=== PATIENT | male | born 1960 | race American Indian/Alaskan Native ===

== ENCOUNTER 2019-11-01 18:27 | Inpatient (IN) | payer MEDICAID ==
[2019-11-01] MEDS ORDERED: LORazepam 2 MG/ML VIAL IV ONE ×2 (18:57→19:10)
[2019-11-01] MEDS ORDERED: LORazepam 2 MG/ML VIAL ONE (18:58)
[2019-11-01] MEDS ORDERED: SODIUM CHLORIDE 0.9% 500 ML 500 ML IV ONE (19:04)
[2019-11-01] MEDS ORDERED: levETIRAcetam 1000 MG/NS 0.75% 1,000 MG/100 ML BAG IV ONE (19:05)
--- NOTE | 2019-11-01 19:40 | Emergency Department Report ---
HPI - General Chief Complaint: Seizure Time Seen by Provider: 11/01/19 19:01 - HPI HPI: 59-year-old -[place] male presents to the emergency department via EMS from [facility] with multiple seizures both prior to arrival and upon presentation. The patient's is currently at bedside and says that he does not have any seizure history. He has a past medical history of CVA, NE with previous CABG, nontraumatic subarachnoid, chronic kidney disease. The patient also recently had a right lower extremity amputation secondary to some type of infection and sepsis. He was not given anything in route by EMS. Patient does have some baseline confusion but is normally alert, conversive. ED Past Medical Hx - Past Medical History Previous Medical History?: Yes Hx CVA: Yes Hx Heart Attack/AMI: Yes Hx Renal Disease: Yes (Stage 3) Hx Seizures: Yes Additional medical history: Coronary artery disease, subarachnoid hemorrhage, Pyelonephritis - Surgical History Past Surgical History?: Yes Additional Surgical History: CABG, PEG tube 05/13/19, R leg amputation 2018 ED Review of Systems ROS: Stated complaint: SEIZURE Other details as noted in HPI Comment: Unobtainable due to pts medical conditions Physical Exam - Physical Exam Vital Signs: Vital Signs 11/01/19 19:03 Temperature 100.1 F H Pulse Rate 133 H Respiratory 26 H Rate Blood Pressure 130/74 [Left] O2 Sat by Pulse 28 L Oximetry Physical Exam: GENERAL: Patient is ill-appearing and unresponsive. HEENT: Normocephalic. Atraumatic. Patient has moist mucous membranes. EYES: Pupils equal and reactive to light bilaterally. NECK: Supple. Trachea is midline. CHEST/LUNGS: Clear to auscultation. There is no respiratory distress noted. HEART/CARDIOVASCULAR: Regular. There is moderate tachycardia. There is no murmur. ABDOMEN: Abdomen is soft. Patient has normal bowel sounds. There is no abdominal distention. SKIN:Skin is warm and dry. There is a stage I to 2 sacral ulcer or skin breakdown. NEURO: The patient is postictal and unresponsive. MUSCULOSKELETAL: There is no obvious deformity. Right below-knee amputation. ED Course Vital Signs 11/01/19 19:03 Temperature 100.1 F H Pulse Rate 133 H Respiratory 26 H Rate Blood Pressure 130/74 [Left] O2 Sat by Pulse 28 L Oximetry ED Medical Decision Making - Lab Data Result diagrams: 11/01/19 19:14 11/01/19 19:14 - EKG Data -: EKG Interpreted by Me EKG shows normal: sinus rhythm (PVCs), axis (left axis deviation), intervals, QRS complexes ( Q waves to the septal and inferior leads), ST-T waves Rate: tachycardia (150 bpm) - EKG Data When compared to previous EKG there are: previous EKG unavailable Interpretation: other (sinus tachycardia at 150 bpm, PVCs, Q waves to the septal and inferior leads) - Radiology Data Radiology results: report reviewed, image reviewed interpreted by me: Chest x-ray does not show any pleural effusions, pneumonia, pneumothorax, focal consolidation, or any other acute process. CT HEAD WITHOUT CONTRAST INDICATION / CLINICAL INFORMATION: Altered mental status. TECHNIQUE: All CT scans at this location are performed using CT dose reduction for ALARA by means of automated exposure control. COMPARISON: None available. FINDINGS: HEMORRHAGE: None. EXTRA-AXIAL SPACES: Normal in size and morphology for the patient's age. VENTRICULAR SYSTEM: Normal in size and morphology for the patient's age. CEREBRAL PARENCHYMA: Old right parieto-occipital CVA with encephalomalacia. Extensive periventricular and deep white matter hypoattenuation characteristic for microangiopathy. No large acute territorial infarction. MIDLINE SHIFT OR HERNIATION: None. CEREBELLUM / BRAINSTEM: No significant abnormality. ORBITS: Normal as visualized. SOFT TISSUES of HEAD: No significant abnormality. CALVARIUM: No significant abnormality. PARANASAL SINUSES / MASTOID AIR CELLS: Opacification of both mastoid air cells characteristic for mastoiditis. Paranasal sinuses are well-aerated. ADDITIONAL FINDINGS: None. IMPRESSION: 1. Old right DIAMOND GRINDER CVA. 2. Extensive microangiopathy and moderate atrophy 3. Bilateral mastoiditis - Medical Decision Making This patient presents to the emergency department with some seizures prior to arrival and then a few seizures upon arrival. The patient's says that he does not have any seizure history. He was given 2 different doses of IM Ativan and once an IV was established he was loaded with a gram of Keppra. After getting these medications the patient did not have any further seizure-like activity. He came in with moderate tachycardia but his heart rate went up to about 150-160 bpm after the seizures. EKG shows sinus tachycardia without ST elevation NE. Patient's labs shows a leukocytosis of about 15,000, some anemia with a hemoglobin of 8.9, severe lactic acidosis, low bicarbonate, and a urinary tract infection. The patient was given 2 L of IV fluid resuscitation and his lactic acid level has trended down and is within the normal range at this point. He was given some Rocephin for the urinary tract infection. A CT scan of the head without contrast did not show any bleed, shift, mass, ischemia, or any other acute process. Chest x-ray did not show any acute process. Patient will be admitted to the hospital for further evaluation and treatment and was accepted for admission by the hospitalist, Dr. Kee. - Differential Diagnosis sepsis, TIA, hypoglycemia, dysrhythmia Critical Care Time: Yes Critical care time in (mins) excluding proc time.: 35 Critical care attestation.: If time is entered above; I have spent that time in minutes in the direct care of this critically ill patient, excluding procedure time. Critical care time was spent on this patient and doing his initial evaluation, multiple re- evaluations, ordering and interpretation of labs and imaging, IV fluid resuscitation, antiepileptic medication, multiple discussions with the patient's . Critical Care Time: 35 minutes ED Disposition Clinical Impression: New onset seizure, Tachycardia UTI (urinary tract infection) Qualifiers: Urinary tract infection type: acute cystitis Hematuria presence: without hematuria Qualified Code(s): N30.00 - Acute cystitis without hematuria Hypertension Qualifiers: Hypertension type: essential hypertension Qualified Code(s): I10 - Essential (primary) hypertension Altered mental status Qualifiers: Altered mental status type: unspecified Qualified Code(s): R41.82 - Altered mental status, unspecified Disposition: OP ADMIT IP TO THIS HOSP Is pt being admited?: Yes Condition: Serious Instructions: Hypertension (ED) Referrals: PAOLA SMITH MD [Primary Care Provider] - 3-5 Days Time of Disposition: 00:12
[2019-11-01 19:46] LABS: INR 1.35 (0.87-1.13); Mean Corpuscular HGB Conc 30 % (32-34); Mean Corpuscular Volume 99 fl (84-94); Platelet Count 515 K/mm3 (140-440); Red Blood Count 3.05 M/mm3 (3.65-5.03); Red Cell Distribution Width 18.5 % (13.2-15.2)
[2019-11-01 19:47] LABS: Partial Thromboplastin Time 38.4 Sec. (24.2-36.6)
[2019-11-01 19:48] LABS: Hematocrit 30.1 % (35.5-45.6); Hemoglobin 8.9 gm/dl (11.8-15.2)
[2019-11-01 19:58] LABS: Calcium 9.5 mg/dL (8.4-10.2)
[2019-11-01 19:59] LABS: Albumin 3.2 g/dL (3.9-5)
--- NOTE | 2019-11-01 20:21 | XRay Report ---
CHEST 1 VIEW 11/01/2019 7:05 PM INDICATION / CLINICAL INFORMATION: Altered mental status. COMPARISON: None available. FINDINGS: SUPPORT DEVICES: None. HEART / MEDIASTINUM: Sternotomy, CABG, left atrial appendage clip and mild cardiomegaly. LUNGS / PLEURA: Mild linear bibasilar scarring/atelectasis. No significant pulmonary or pleural abnor mality. No pneumothorax. ADDITIONAL FINDINGS: No significant additional findings. IMPRESSION: 1. No acute findings. Signer Name: Sarbjit Sofia MD Signed: 11/01/2019 8:16 PM Workstation Name: [id number]
[2019-11-01 20:24] LABS: Total Cells Counted 100
[2019-11-01 20:25] LABS: Anisocytosis 1+; Basophils % (Manual) 0 % (0.0-1.8); Platelet Estimate Appears Increased; Poikilocytosis 1+
[2019-11-01] MEDS ORDERED: SODIUM CHLORIDE 0.9% 1000 ML 1,000 ML IV ONE (21:02)
[2019-11-01 21:30] LABS: Bilirubin,Urine NEG (Negative); Blood,Urine NEG (Negative); Color,Urine Yellow (Yellow); Hyaline Casts,Urine 4 /LPF; Mucus,Urine FEW /HPF; Urobilinogen,Urine < 2.0 mg/dL (<2.0)
[2019-11-01] MEDS ORDERED: cefTRIAXone/NS 1 GM/50 ML 1 GM/50 ML BAG IV ONE (21:33)
--- NOTE | 2019-11-01 21:49 | Cat Scan Report ---
CT HEAD WITHOUT CONTRAST INDICATION / CLINICAL INFORMATION: Altered mental status. TECHNIQUE: All CT scans at this location are performed using CT dose reduction for ALARA by means of automated e xposure control. COMPARISON: None available. FINDINGS: HEMORRHAGE: None. EXTRA-AXIAL SPACES: Normal in size and morphology for the patient's age. VENTRICULAR SYSTEM: Normal in size and morphology for the patient's age. CEREBRAL PARENCHYMA: Old right parieto-occipital CVA with encephalomalacia. Extensive periventricular and deep white matter hypoattenuation characteristic for microangiopathy. No large acute territorial infarction. MIDLINE SHIFT OR HERNIATION: None. CEREBELLUM / BRAINSTEM: No significant abnormality. ORBITS: Normal as visualized. SOFT TISSUES of HEAD: No significant abnormality. CALVARIUM: No significant abnormality. PARANASAL SINUSES / MASTOID AIR CELLS: Opacification of both mastoid air cells characteristic for mas toiditis. Paranasal sinuses are well-aerated. ADDITIONAL FINDINGS: None. IMPRESSION: 1. Old right [employer] CVA. 2. Extensive microangiopathy and moderate atrophy 3. Bilateral mastoiditis Signer Name: Sarbjit Sofia MD Signed: 11/01/2019 9:45 PM Workstation Name: [id number]
[2019-11-01] MEDS ORDERED: ACETAMINOPHEN 650 MG RECT SUPP PR ONE (23:06)
[2019-11-02] MEDS ORDERED: LACTULOSE 20 GM/30 ML ORAL LIQD PO ONE (00:10)
--- NOTE | 2019-11-02 01:06 | History and Physical Report ---
History of Present Illness Date of examination: 11/01/19 Date of admission: 11/01/19 23:48 Chief complaint: Seizure per family History of present illness: Patient is a 59-year-old male with a past medical history of CVA, CAD, CABG, CKD, who presents to ER with complaints of seizure-like activity. Patient is a resident of [facility] where he has been since his stroke 2018. Patient is known to [facility]. Patient's states he does not have his tory of seizure, but received call from facility stating that her was on the way to ER status post seizure this evening. She reports he recently had his right leg amputated 10/30/19, for loss of blood flow. Patient is currently sleeping but awakes to stimuli, in no acute distress on exam. Past History Past Surgical History: Other (Right leg amputation 10/30/19, ) Social history: no significant social history Family history: CAD, diabetes Medications and Allergies Allergies Allergy/AdvReac Type Severity Reaction Status Date / Time No Known Allergies Allergy Verified 11/01/19 18:46 Review of Systems ROS unobtainable: due to mental status Exam - Constitutional Vitals: Temp Pulse Resp BP Pulse Ox 100.1 F H 129 H 23 151/82 96 11/01/19 19:03 11/01/19 23:31 11/01/19 23:31 11/01/19 23:31 11/01/19 23:31 General appearance: Present: no acute distress - Respiratory Respiratory: bilateral: CTA - Extremities Extremities: No edema - Abdominal General gastrointestinal: Present: non-distended - Integumentary Integumentary: Present: warm, dry (sacral ulcer ) - Musculoskeletal Musculoskeletal: left sided weakness Results - Labs CBC & Chem 7: 11/01/19 19:14 11/01/19 19:14 Labs: Laboratory Last Values WBC 15.4 K/mm3 (4.5-11.0) H 11/01/19 19:14 RBC 3.05 M/mm3 (3.65-5.03) L 11/01/19 19:14 Hgb 8.9 gm/dl (11.8-15.2) L 11/01/19 19:14 Hct 30.1 % (35.5-45.6) L 11/01/19 19:14 MCV 99 fl (84-94) H 11/01/19 19:14 MCH 29 pg (28-32) 11/01/19 19:14 MCHC 30 % (32-34) L 11/01/19 19:14 RDW 18.5 % (13.2-15.2) H 11/01/19 19:14 Plt Count 515 K/mm3 (140-440) H 11/01/19 19:14 Add Manual Diff Complete 11/01/19 19:14 Total Counted 100 11/01/19 19:14 Seg Neuts % (Manual) 72.0 % (40.0-70.0) H 11/01/19 19:14 Band Neutrophils % 0 % 11/01/19 19:14 Lymphocytes % (Manual) 18.0 % (13.4-35.0) 11/01/19 19:14 Reactive Lymphs % (Man) 0 % 11/01/19 19:14 Monocytes % (Manual) 4.0 % (0.0-7.3) 11/01/19 19:14 Eosinophils % (Manual) 4.0 % (0.0-4.3) 11/01/19 19:14 Basophils % (Manual) 0 % (0.0-1.8) 11/01/19 19:14 Metamyelocytes % 2.0 % 11/01/19 19:14 Myelocytes % 0 % 11/01/19 19:14 Promyelocytes % 0 % 11/01/19 19:14 Blast Cells % 0 % 11/01/19 19:14 Nucleated RBC % Not Reportable 11/01/19 19:14 Seg Neutrophils # Man 11.1 K/mm3 (1.8-7.7) H 11/01/19 19:14 Band Neutrophils # 0.0 K/mm3 11/01/19 19:14 Lymphocytes # (Manual) 2.8 K/mm3 (1.2-5.4) 11/01/19 19:14 Abs React Lymphs (Man) 0.0 K/mm3 11/01/19 19:14 Monocytes # (Manual) 0.6 K/mm3 (0.0-0.8) 11/01/19 19:14 Eosinophils # (Manual) 0.6 K/mm3 (0.0-0.4) H 11/01/19 19:14 Basophils # (Manual) 0.0 K/mm3 (0.0-0.1) 11/01/19 19:14 Metamyelocytes # 0.3 K/mm3 11/01/19 19:14 Myelocytes # 0.0 K/mm3 11/01/19 19:14 Promyelocytes # 0.0 K/mm3 11/01/19 19:14 Blast Cells # 0.0 K/mm3 11/01/19 19:14 WBC Morphology Not Reportable 11/01/19 19:14 Hypersegmented Neuts Not Reportable 11/01/19 19:14 Hyposegmented Neuts Not Reportable 11/01/19 19:14 Hypogranular Neuts Not Reportable 11/01/19 19:14 Smudge Cells Not Reportable 11/01/19 19:14 Toxic Granulation Not Reportable 11/01/19 19:14 Toxic Vacuolation Not Reportable 11/01/19 19:14 Dohle Bodies Not Reportable 11/01/19 19:14 Pelger-Huet Anomaly Not Reportable 11/01/19 19:14 Shayla Rods Not Reportable 11/01/19 19:14 Platelet Estimate Appears increased 11/01/19 19:14 Clumped Platelets Not Reportable 11/01/19 19:14 Plt Clumps, EDTA Not Reportable 11/01/19 19:14 Large Platelets Not Reportable 11/01/19 19:14 Giant Platelets Not Reportable 11/01/19 19:14 Platelet Satelliting Not Reportable 11/01/19 19:14 Plt Morphology Comment Not Reportable 11/01/19 19:14 RBC Morphology Not Reportable 11/01/19 19:14 Dimorphic RBCs Not Reportable 11/01/19 19:14 Polychromasia Not Reportable 11/01/19 19:14 Hypochromasia Not Reportable 11/01/19 19:14 Poikilocytosis 1+ 11/01/19 19:14 Anisocytosis 1+ 11/01/19 19:14 Microcytosis Not Reportable 11/01/19 19:14 Macrocytosis Not Reportable 11/01/19 19:14 Spherocytes Not Reportable 11/01/19 19:14 Pappenheimer Bodies Not Reportable 11/01/19 19:14 Sickle Cells Not Reportable 11/01/19 19:14 Target Cells Not Reportable 11/01/19 19:14 Tear Drop Cells Not Reportable 11/01/19 19:14 Ovalocytes Not Reportable 11/01/19 19:14 Helmet Cells Not Reportable 11/01/19 19:14 Lu-Prosper Bodies Not Reportable 11/01/19 19:14 Mcintosh Rings Not Reportable 11/01/19 19:14 Justice Cells Not Reportable 11/01/19 19:14 Bite Cells Not Reportable 11/01/19 19:14 Crenated Cell Not Reportable 11/01/19 19:14 Elliptocytes Not Reportable 11/01/19 19:14 Acanthocytes (Spur) Not Reportable 11/01/19 19:14 Rouleaux Not Reportable 11/01/19 19:14 Hemoglobin C Crystals Not Reportable 11/01/19 19:14 Schistocytes Not Reportable 11/01/19 19:14 Malaria parasites Not Reportable 11/01/19 19:14 Edu Bodies Not Reportable 11/01/19 19:14 Hem Pathologist Commnt No 11/01/19 19:14 PT 16.9 Sec. (12.2-14.9) H 11/01/19 19:14 INR 1.35 (0.87-1.13) H 11/01/19 19:14 APTT 38.4 Sec. (24.2-36.6) H 11/01/19 19:14 Sodium 138 mmol/L (137-145) 11/01/19 19:14 Potassium 4.8 mmol/L (3.6-5.0) 11/01/19 19:14 Chloride 95.8 mmol/L (98-107) L 11/01/19 19:14 Carbon Dioxide 5 mmol/L (22-30) L* 11/01/19 19:14 Anion Gap 42 mmol/L 11/01/19 19:14 BUN 22 mg/dL (9-20) H 11/01/19 19:14 Creatinine 1.3 mg/dL (0.8-1.5) 11/01/19 19:14 Estimated GFR 57 ml/min 11/01/19 19:14 BUN/Creatinine Ratio 17 % 11/01/19 19:14 Glucose 92 mg/dL (75-100) 11/01/19 19:14 Lactic Acid 1.40 mmol/L (0.7-2.0) 11/01/19 22:45 Calcium 9.5 mg/dL (8.4-10.2) 11/01/19 19:14 Total Bilirubin 0.30 mg/dL (0.1-1.2) 11/01/19 19:14 AST 51 units/L (5-40) H 11/01/19 19:14 ALT 76 units/L (7-56) H 11/01/19 19:14 Alkaline Phosphatase 91 units/L (35-129) 11/01/19 19:14 Ammonia 90.0 umol/L (25-60) H 11/01/19 19:14 Troponin T 0.020 ng/mL (0.00-0.029) 11/01/19 19:14 Total Protein 7.3 g/dL (6.3-8.2) 11/01/19 19:14 Albumin 3.2 g/dL (3.9-5) L 11/01/19 19:14 Albumin/Globulin Ratio 0.8 % 11/01/19 19:14 TSH 5.280 mlU/mL (0.270-4.200) H 11/01/19 19:14 Urine Color Yellow (Yellow) 11/01/19 20:57 Urine Turbidity Cloudy (Clear) 11/01/19 20:57 Urine pH 5.0 (5.0-7.0) 11/01/19 20:57 Ur Specific [place] 1.013 (1.003-1.030) 11/01/19 20:57 Urine Protein 30 mg/dl mg/dL (Negative) 11/01/19 20:57 Urine Glucose (UA) Neg mg/dL (Negative) 11/01/19 20:57 Urine Ketones Neg mg/dL (Negative) 11/01/19 20:57 Urine Blood Neg (Negative) 11/01/19 20:57 Urine Nitrite Neg (Negative) 11/01/19 20:57 Urine Bilirubin Neg (Negative) 11/01/19 20:57 Urine Urobilinogen < 2.0 mg/dL (<2.0) 11/01/19 20:57 Ur Leukocyte Esterase Mod (Negative) 11/01/19 20:57 Urine WBC (Auto) 83.0 /HPF (0.0-6.0) H 11/01/19 20:57 Urine RBC (Auto) 16.0 /HPF (0.0-6.0) 11/01/19 20:57 Hyaline Casts 4 /LPF 11/01/19 20:57 Urine Mucus Few /HPF 11/01/19 20:57 Ur Yeast w Hyphae Few /HPF 11/01/19 20:57 Urine Yeast (Budding) 2+ /HPF 11/01/19 20:57 Plasma/Serum Alcohol < 0.01 % (0-0.07) 11/01/19 19:14 - Imaging and Cardiology Chest x-ray: report reviewed (1.No acute findings) CT Scan - head: report reviewed (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 Extensive microangiopathy and moderate atrophy. Bilateral mastoiditis) Assessment and Plan Assessment and plan: Sepsis -Related to UTI Heart rate 164 Respirations 36 -Leukocytosis 15.4 -ID consulted -Received IVF resuscitation Seizure -New onset -Neurology consulted in ED -Supportive care -Seizure precaution Acute encephalpathy -He should back at baseline secondary to underlying sepsis Anemia -Monitor lab -Transfuse as needed Hypertension -Monitor BP -Resume home hypertensive meds once medication reconciliation has been updated -IV hydralazine when necessary Urinary tract infection -Urine culture pending -Continue Rocephin DVT prophylaxis -SCDs bilateral -Lovenox subq VTE prophylaxis?: Chemical Plan of care discussed with patient/family: Yes
[2019-11-02] MEDS ORDERED: ONDANSETRON 4 MG/2 ML INJ IV PRN (01:10)
[2019-11-02] MEDS ORDERED: ACETAMINOPHEN 325 MG TAB PO PRN (01:10)
[2019-11-02 02:20] LABS: Free T4 (Free Thyroxine) 1.56 ng/dL (0.76-1.46)
[2019-11-02] MEDS ORDERED: ACETAMINOPHEN 650 MG RECT SUPP PR PRN (03:57)
[2019-11-02] MEDS ORDERED: LACTULOSE 20 GM/30 ML ORAL LIQD ONE (04:02)
[2019-11-02] MEDS: SODIUM CHLORIDE 0.9% 1000 ML 1,000 ML IV SCH (06:25)
[2019-11-02] MEDS ORDERED: cefTRIAXone/NS 1 GM/50 ML 1 GM/50 ML BAG IV SCH (10:00)
[2019-11-02] MEDS ORDERED: cefTRIAXone/NS 1 GM/50 ML 1 GM/50 ML BAG IV ONE (11:40)
--- NOTE | 2019-11-02 12:01 | Consultation ---
History of Present Illness - Reason for Consult Consult date: 11/02/19 - History of Present Illness 59 yo M PMHx CVA, CAD s/p CABG, CKD who was brought to the ER from his rehab facility due to reports of seizure-like activity. He has been in the rehab since December of last year secondary to his stroke. Family reports that he does not have a history of seizures and that is a new development for him. He also recently had his leg amputated due to ischemia on 10/30/2019, most likely at [place] where he had previously been receiving most of his care. He is minimally participative in the interview. Afebrile since admission with a white count of 15. INitially with lactic acidosis which has since resolved. Currently receiving ceftriaxone. UA with pyuria. Blood cultures no growth so far. Imaging personally reviewed: CXR - no acute infectious abnormality. Review of Systems: Bold if positive, otherwise negative General: fevers, chills, rigors HEENT: visual disturbance, diplopia, eye pain Respiratory: cough, sputum, hemoptysis, shortness of breath Cardiovascular: chest pain, syncope Gastrointestinal: nausea, vomiting, diarrhea, abdominal pain Genitourinary: dysuria, hematuria, flank pain Musculoskeletal: neck pain, back pain, joint pain, edema Neurologic: headaches, seizures Hematologic: easy bruising or bleeding Endocrine: night sweats, acute weight loss Skin: rash, jaundice, redness Psychiatric: suicidal, homicidal ideation Past History Past Medical History: other (See HPI) Past Surgical History: Other (Right leg amputation 10/30/19, ) Social history: no significant social history Family history: CAD, diabetes Medications and Allergies Allergies Allergy/AdvReac Type Severity Reaction Status Date / Time No Known Allergies Allergy Verified 11/01/19 18:46 Active Meds: Active Medications Acetaminophen (Tylenol) 650 mg PO Q4H PRN PRN Reason: Pain MILD(1-3)/Fever >100.5/KABA Acetaminophen (Tylenol) 650 mg VA Q6H PRN PRN Reason: Pain, Mild (1-3) Sodium Chloride (Nacl 0.9% 1000 Ml) 1,000 mls @ 125 mls/hr IV DIRECT CROW Last Admin: 11/02/19 06:25 Dose: 125 mls/hr Documented by: Ceftriaxone Sodium (Rocephin/Ns 1 Gm/50 Ml) 1 gm in 50 mls @ 100 mls/hr IV Q24HR CROW; Protocol Stop: 11/04/19 10:29 Last Admin: 11/02/19 11:40 Dose: 100 mls/hr Documented by: Ondansetron HCl (Zofran) 4 mg IV Q8H PRN PRN Reason: Nausea And Vomiting Sodium Chloride (Sodium Chloride Flush Syringe 10 Ml) 10 ml IV BID CROW Sodium Chloride (Sodium Chloride Flush Syringe 10 Ml) 10 ml IV PRN PRN PRN Reason: LINE FLUSH Last Admin: 11/02/19 11:45 Dose: 10 ml Documented by: Physical Examination - Physical Exam Narrative exam: Constitutional: Alert, cooperative. No acute distress Head, Ears, Nose: Normocephalic, atraumatic. External ears, nose normal Eyes: Conjunctivae/corneas clear. No icterus. No ptosis. Neck: Supple, no meningeal signs Oral: dentition fair, no thrush Cardiovascular: S1, S2 normal. Respiratory: Good air entry, clear to auscultation bilaterally GI: Soft, non-tender; bowel sounds normal. No peritoneal signs. Musculoskeletal: No pedal edema, no cyanosis. R BKA, sacral wound Skin: No rash or abscess Hem/Lymphatic: No palpable cervical or supraclavicular nodes. No lymphangitis Psych: Mood ok. Affect normal Neurological: Awake, alert, oriented. No gross abnormality - Constitutional Vitals: Vital Signs Temp Pulse Resp BP Pulse Ox 99.3 F 123 H 25 H 173/101 95 11/02/19 09:25 11/02/19 11:00 11/02/19 11:00 11/02/19 11:00 11/02/19 11:00 Temperature -Last 24 Hours Temperature 99.3 F Temperature 100.1 F Results - Labs CBC & Chem 7: 11/01/19 19:14 11/01/19 19:14 Labs: Abnormal lab results 11/01/19 11/01/19 11/01/19 Range/Units 19:14 19:14 19:14 WBC 15.4 H (4.5-11.0) K/mm3 RBC 3.05 L (3.65-5.03) M/mm3 Hgb 8.9 L (11.8-15.2) gm/dl Hct 30.1 L (35.5-45.6) % MCV 99 H (84-94) fl MCHC 30 L (32-34) % RDW 18.5 H (13.2-15.2) % Plt Count 515 H (140-440) K/mm3 Seg Neuts % (Manual) 72.0 H (40.0-70.0) % Seg Neutrophils # Man 11.1 H (1.8-7.7) K/mm3 Eosinophils # (Manual) 0.6 H (0.0-0.4) K/mm3 PT 16.9 H (12.2-14.9) Sec. INR 1.35 H (0.87-1.13) APTT 38.4 H (24.2-36.6) Sec. Chloride 95.8 L (98-107) mmol/L Carbon Dioxide 5 L* (22-30) mmol/L BUN 22 H (9-20) mg/dL Lactic Acid (0.7-2.0) mmol/L AST 51 H (5-40) units/L ALT 76 H (7-56) units/L Ammonia (25-60) umol/L Albumin 3.2 L (3.9-5) g/dL TSH (0.270-4.200) mlU/mL Free T4 (0.76-1.46) ng/dL Urine WBC (Auto) (0.0-6.0) /HPF 11/01/19 11/01/19 11/01/19 Range/Units 19:14 19:14 19:14 WBC (4.5-11.0) K/mm3 RBC (3.65-5.03) M/mm3 Hgb (11.8-15.2) gm/dl Hct (35.5-45.6) % MCV (84-94) fl MCHC (32-34) % RDW (13.2-15.2) % Plt Count (140-440) K/mm3 Seg Neuts % (Manual) (40.0-70.0) % Seg Neutrophils # Man (1.8-7.7) K/mm3 Eosinophils # (Manual) (0.0-0.4) K/mm3 PT (12.2-14.9) Sec. INR (0.87-1.13) APTT (24.2-36.6) Sec. Chloride (98-107) mmol/L Carbon Dioxide (22-30) mmol/L BUN (9-20) mg/dL Lactic Acid 20.20 H* (0.7-2.0) mmol/L AST (5-40) units/L ALT (7-56) units/L Ammonia 90.0 H (25-60) umol/L Albumin (3.9-5) g/dL TSH 5.280 H (0.270-4.200) mlU/mL Free T4 (0.76-1.46) ng/dL Urine WBC (Auto) (0.0-6.0) /HPF 11/01/19 11/01/19 11/02/19 Range/Units 20:57 21:17 01:27 WBC (4.5-11.0) K/mm3 RBC (3.65-5.03) M/mm3 Hgb (11.8-15.2) gm/dl Hct (35.5-45.6) % MCV (84-94) fl MCHC (32-34) % RDW (13.2-15.2) % Plt Count (140-440) K/mm3 Seg Neuts % (Manual) (40.0-70.0) % Seg Neutrophils # Man (1.8-7.7) K/mm3 Eosinophils # (Manual) (0.0-0.4) K/mm3 PT (12.2-14.9) Sec. INR (0.87-1.13) APTT (24.2-36.6) Sec. Chloride (98-107) mmol/L Carbon Dioxide (22-30) mmol/L BUN (9-20) mg/dL Lactic Acid 5.60 H* (0.7-2.0) mmol/L AST (5-40) units/L ALT (7-56) units/L Ammonia (25-60) umol/L Albumin (3.9-5) g/dL TSH (0.270-4.200) mlU/mL Free T4 1.56 H (0.76-1.46) ng/dL Urine WBC (Auto) 83.0 H (0.0-6.0) /HPF Assessment and Plan Cultures: Blood cultures 11/01/2019 - pending A/P: 59 yo M PMHx CVA, CAD s/p CABG, CKD admitted after seizures and now concern for UTI 1. Acute sepsis - present with leukocytosis and tachycardia. Likely secondary to UTI. Follow up blood cultures. Lactic acidosis likely 2/2 seizure; now resolved. 2. UTI - pending urine cultures, would continue ceftriaxone for now. Repeat CBC in AM. 3. CKD - renally dose antibiotics as appropriate Recs: - follow up urine and blood cultures - repeat CBC in AM - continue ceftriaxone 2g q24h Thank you for the consult, we will continue to follow. Braulio Causey MD [facility] M: [phone] O: [phone] F: [phone]
[2019-11-02] MEDS ORDERED: SIMPLE SYRUP 15 ML FEEDTUBE PRN ×2 (13:45)
[2019-11-02] MEDS ORDERED: SODIUM BICARBONATE 325 MG TAB FEEDTUBE PRN (13:45)
[2019-11-02] MEDS ORDERED: LIPASE 10,500/PROTEASE 25,000/AMYLASE 43,750 (UNITS) DR CAP FEEDTUBE PRN (13:45)
[2019-11-02] MEDS ORDERED: VANCOMYCIN 1,250 MG in SODIUM CHLORIDE 0.9% 500 ML 500 ML IV ONE (18:06)
[2019-11-02] MEDS ORDERED: SODIUM CHLORIDE 0.9% 1000 ML IV SOLN IV ONE (18:06)
[2019-11-02] MEDS ORDERED: SODIUM BICARB 8.4% 50 MEQ/50 ML SYRINGE IV ONE (18:13)
--- NOTE | 2019-11-02 18:14 | Progress Note ---
Assessment and Plan - Patient Problems (1) Sepsis Current Visit: Yes Status: Acute Qualifiers: Severe sepsis shock status: unspecified Plan to address problem: Sepsis protocol: IV antibiotic therapy, blood cultures, urinalysis, CBC, CMP, chest x-ray, serial lactic acid level, monitor urine output every shift, IV fluid resuscitation therapy. (2) Encephalopathy Current Visit: Yes Status: Acute Plan to address problem: CT head, neurochecks, aspiration precautions, CBC, CMP, thyroid panel. (3) New onset seizure Current Visit: Yes Status: Acute Plan to address problem: Treat sepsis, neurochecks, no active seizure at this time. Neurology consulted in ED. (4) UTI (urinary tract infection) Current Visit: Yes Status: Acute Qualifiers: Urinary tract infection type: acute cystitis Hematuria presence: without hematuria Qualified Code(s): N30.00 - Acute cystitis without hematuria Plan to address problem: Urinalysis, CBC, IV antibiotic therapy, (5) Acidosis Current Visit: Yes Status: Acute Plan to address problem: CMP, IV bicarbonate therapy, repeat CMP in a.m. IV fluid resuscitation therapy. (6) DVT prophylaxis Current Visit: Yes Status: Acute Plan to address problem: SCD to bilateral lower extremities while in bed, prophylactic heparin History Interval history: 59-year-old male hospital day 2 with urinary tract infection complicated by sepsis, acidosis, anemia, hypertension, encephalopathy. Patient is nonverbal and unable to provide history. Lab and imaging studies reviewed. Patient treated in accordance with sepsis protocol. Patient lying in bed, patient is stuporous which is unchanged from his previous exam. Will repeat CBC in a.m., follow-up on blood and urine cultures that are still pending. Will adjust antibiotic therapy as clinically indicated. No reported nursing events overnight. Hospitalist Physical - Constitutional Vitals: Temp Pulse Resp BP Pulse Ox 99.3 F 123 H 25 H 173/101 95 11/02/19 09:25 11/02/19 11:00 11/02/19 11:00 11/02/19 11:00 11/02/19 11:00 General appearance: Present: no acute distress, cachectic - EENT Eyes: Present: miosis ENT: hearing decreased - Neck Neck: Present: supple - Respiratory Respiratory effort: labored Respiratory: bilateral: diminished, rhonchi - Cardiovascular Rhythm: other (Tachycardia) Heart Sounds: Present: S1 & S2 - Extremities Extremities: no ischemia Peripheral Pulses: abnormal (Capillary refill greater than than 3.5 seconds) - Abdominal General gastrointestinal: soft, non-distended - Integumentary Integumentary: Present: clear, dry, clammy, decreased turgor - Psychiatric Psychiatric: no appropriate mood/affect, no intact judgment & insight, no memory intact - Neurologic Neurologic: focal deficits, no moves all extremities, no gait normal Results - Labs CBC & Chem 7: 11/01/19 19:14 11/01/19 19:14 Labs: Laboratory Last Values WBC 15.4 K/mm3 (4.5-11.0) H 11/01/19 19:14 RBC 3.05 M/mm3 (3.65-5.03) L 11/01/19 19:14 Hgb 8.9 gm/dl (11.8-15.2) L 11/01/19 19:14 Hct 30.1 % (35.5-45.6) L 11/01/19 19:14 MCV 99 fl (84-94) H 11/01/19 19:14 MCH 29 pg (28-32) 11/01/19 19:14 MCHC 30 % (32-34) L 11/01/19 19:14 RDW 18.5 % (13.2-15.2) H 11/01/19 19:14 Plt Count 515 K/mm3 (140-440) H 11/01/19 19:14 Add Manual Diff Complete 11/01/19 19:14 Total Counted 100 11/01/19 19:14 Seg Neuts % (Manual) 72.0 % (40.0-70.0) H 11/01/19 19:14 Band Neutrophils % 0 % 11/01/19 19:14 Lymphocytes % (Manual) 18.0 % (13.4-35.0) 11/01/19 19:14 Reactive Lymphs % (Man) 0 % 11/01/19 19:14 Monocytes % (Manual) 4.0 % (0.0-7.3) 11/01/19 19:14 Eosinophils % (Manual) 4.0 % (0.0-4.3) 11/01/19 19:14 Basophils % (Manual) 0 % (0.0-1.8) 11/01/19 19:14 Metamyelocytes % 2.0 % 11/01/19 19:14 Myelocytes % 0 % 11/01/19 19:14 Promyelocytes % 0 % 11/01/19 19:14 Blast Cells % 0 % 11/01/19 19:14 Nucleated RBC % Not Reportable 11/01/19 19:14 Seg Neutrophils # Man 11.1 K/mm3 (1.8-7.7) H 11/01/19 19:14 Band Neutrophils # 0.0 K/mm3 11/01/19 19:14 Lymphocytes # (Manual) 2.8 K/mm3 (1.2-5.4) 11/01/19 19:14 Abs React Lymphs (Man) 0.0 K/mm3 11/01/19 19:14 Monocytes # (Manual) 0.6 K/mm3 (0.0-0.8) 11/01/19 19:14 Eosinophils # (Manual) 0.6 K/mm3 (0.0-0.4) H 11/01/19 19:14 Basophils # (Manual) 0.0 K/mm3 (0.0-0.1) 11/01/19 19:14 Metamyelocytes # 0.3 K/mm3 11/01/19 19:14 Myelocytes # 0.0 K/mm3 11/01/19 19:14 Promyelocytes # 0.0 K/mm3 11/01/19 19:14 Blast Cells # 0.0 K/mm3 11/01/19 19:14 WBC Morphology Not Reportable 11/01/19 19:14 Hypersegmented Neuts Not Reportable 11/01/19 19:14 Hyposegmented Neuts Not Reportable 11/01/19 19:14 Hypogranular Neuts Not Reportable 11/01/19 19:14 Smudge Cells Not Reportable 11/01/19 19:14 Toxic Granulation Not Reportable 11/01/19 19:14 Toxic Vacuolation Not Reportable 11/01/19 19:14 Dohle Bodies Not Reportable 11/01/19 19:14 Pelger-Huet Anomaly Not Reportable 11/01/19 19:14 Shayla Rods Not Reportable 11/01/19 19:14 Platelet Estimate Appears increased 11/01/19 19:14 Clumped Platelets Not Reportable 11/01/19 19:14 Plt Clumps, EDTA Not Reportable 11/01/19 19:14 Large Platelets Not Reportable 11/01/19 19:14 Giant Platelets Not Reportable 11/01/19 19:14 Platelet Satelliting Not Reportable 11/01/19 19:14 Plt Morphology Comment Not Reportable 11/01/19 19:14 RBC Morphology Not Reportable 11/01/19 19:14 Dimorphic RBCs Not Reportable 11/01/19 19:14 Polychromasia Not Reportable 11/01/19 19:14 Hypochromasia Not Reportable 11/01/19 19:14 Poikilocytosis 1+ 11/01/19 19:14 Anisocytosis 1+ 11/01/19 19:14 Microcytosis Not Reportable 11/01/19 19:14 Macrocytosis Not Reportable 11/01/19 19:14 Spherocytes Not Reportable 11/01/19 19:14 Pappenheimer Bodies Not Reportable 11/01/19 19:14 Sickle Cells Not Reportable 11/01/19 19:14 Target Cells Not Reportable 11/01/19 19:14 Tear Drop Cells Not Reportable 11/01/19 19:14 Ovalocytes Not Reportable 11/01/19 19:14 Helmet Cells Not Reportable 11/01/19 19:14 Lu-[place] Bodies Not Reportable 11/01/19 19:14 [place] Rings Not Reportable 11/01/19 19:14 Justice Cells Not Reportable 11/01/19 19:14 Bite Cells Not Reportable 11/01/19 19:14 Crenated Cell Not Reportable 11/01/19 19:14 Elliptocytes Not Reportable 11/01/19 19:14 Acanthocytes (Spur) Not Reportable 11/01/19 19:14 Rouleaux Not Reportable 11/01/19 19:14 Hemoglobin C Crystals Not Reportable 11/01/19 19:14 Schistocytes Not Reportable 11/01/19 19:14 Malaria parasites Not Reportable 11/01/19 19:14 Edu Bodies Not Reportable 11/01/19 19:14 Hem Pathologist Commnt No 11/01/19 19:14 PT 16.9 Sec. (12.2-14.9) H 11/01/19 19:14 INR 1.35 (0.87-1.13) H 11/01/19 19:14 APTT 38.4 Sec. (24.2-36.6) H 11/01/19 19:14 Sodium 138 mmol/L (137-145) 11/01/19 19:14 Potassium 4.8 mmol/L (3.6-5.0) 11/01/19 19:14 Chloride 95.8 mmol/L (98-107) L 11/01/19 19:14 Carbon Dioxide 5 mmol/L (22-30) L* 11/01/19 19:14 Anion Gap 42 mmol/L 11/01/19 19:14 BUN 22 mg/dL (9-20) H 11/01/19 19:14 Creatinine 1.3 mg/dL (0.8-1.5) 11/01/19 19:14 Estimated GFR 57 ml/min 11/01/19 19:14 BUN/Creatinine Ratio 17 % 11/01/19 19:14 Glucose 92 mg/dL (75-100) 11/01/19 19:14 Lactic Acid 1.40 mmol/L (0.7-2.0) 11/01/19 22:45 Calcium 9.5 mg/dL (8.4-10.2) 11/01/19 19:14 Total Bilirubin 0.30 mg/dL (0.1-1.2) 11/01/19 19:14 AST 51 units/L (5-40) H 11/01/19 19:14 ALT 76 units/L (7-56) H 11/01/19 19:14 Alkaline Phosphatase 91 units/L (35-129) 11/01/19 19:14 Ammonia 90.0 umol/L (25-60) H 11/01/19 19:14 Troponin T 0.020 ng/mL (0.00-0.029) 11/01/19 19:14 Total Protein 7.3 g/dL (6.3-8.2) 11/01/19 19:14 Albumin 3.2 g/dL (3.9-5) L 11/01/19 19:14 Albumin/Globulin Ratio 0.8 % 11/01/19 19:14 TSH 0.791 mlU/mL (0.270-4.200) 11/02/19 01:27 Free T4 1.56 ng/dL (0.76-1.46) H 11/02/19 01:27 Urine Color Yellow (Yellow) 11/01/19 20:57 Urine Turbidity Cloudy (Clear) 11/01/19 20:57 Urine pH 5.0 (5.0-7.0) 11/01/19 20:57 Ur Specific [place] 1.013 (1.003-1.030) 11/01/19 20:57 Urine Protein 30 mg/dl mg/dL (Negative) 11/01/19 20:57 Urine Glucose (UA) Neg mg/dL (Negative) 11/01/19 20:57 Urine Ketones Neg mg/dL (Negative) 11/01/19 20:57 Urine Blood Neg (Negative) 11/01/19 20:57 Urine Nitrite Neg (Negative) 11/01/19 20:57 Urine Bilirubin Neg (Negative) 11/01/19 20:57 Urine Urobilinogen < 2.0 mg/dL (<2.0) 11/01/19 20:57 Ur Leukocyte Esterase Mod (Negative) 11/01/19 20:57 Urine WBC (Auto) 83.0 /HPF (0.0-6.0) H 11/01/19 20:57 Urine RBC (Auto) 16.0 /HPF (0.0-6.0) 11/01/19 20:57 Hyaline Casts 4 /LPF 11/01/19 20:57 Urine Mucus Few /HPF 11/01/19 20:57 Ur Yeast w Hyphae Few /HPF 11/01/19 20:57 Urine Yeast (Budding) 2+ /HPF 11/01/19 20:57 Plasma/Serum Alcohol < 0.01 % (0-0.07) 11/01/19 19:14 Blood Type A POSITIVE 11/02/19 01:30 Antibody Screen Negative 11/02/19 01:30 Active Medications - Current Medications Current Medications: Generic Name Dose Route Start Last Admin Trade Name Freq PRN Reason Stop Dose Admin Acetaminophen 650 mg 11/02/19 01:10 Tylenol PO Q4H PRN Pain MILD(1-3)/Fever >100.5/KABA Acetaminophen 650 mg 11/02/19 03:57 Tylenol MS Q6H PRN Pain, Mild (1-3) Lipase/Protease/Amylase 1 each 11/02/19 13:[address] 10,500 Unit FEEDTUBE PRN PRN For Clogged Feeding Tube Heparin Sodium (Porcine) 5,000 unit 11/02/19 22:00 Heparin SUB-Q Q12HR CROW Sodium Chloride 1,000 mls @ 125 mls/hr 11/02/19 01:15 11/02/19 06:25 Nacl 0.9% 1000 Ml IV 125 mls/hr DIRECT CROW Administration Ceftriaxone Sodium 2 gm in 100 mls @ 200 mls/hr 11/03/19 10:00 Rocephin/Ns 2 Gm/100 Ml IV Q24HR [facility] Protocol Vancomycin HCl 1,250 mg/ 275 mls @ 166.667 mls/hr 11/02/19 18:15 Sodium Chloride IV 11/02/19 19:53 ONCE ONE Ondansetron HCl 4 mg 11/02/19 01:10 Zofran IV Q8H PRN Nausea And Vomiting Simple Syrup 15 ml 11/02/19 13:45 Simple Syrup FEEDTUBE PRN PRN Hypoglycemia Simple Syrup 30 ml 11/02/19 13:45 Simple Syrup FEEDTUBE PRN PRN Hypoglycemia Sodium Bicarbonate 325 mg 11/02/19 13:45 Sodium Bicarbonate FEEDTUBE PRN PRN For Clogged Feeding Tube Sodium Chloride 10 ml 11/02/19 10:00 Sodium Chloride Flush Syringe 10 Ml IV BID CROW Sodium Chloride 10 ml 11/02/19 01:10 11/02/19 11:45 Sodium Chloride Flush Syringe 10 Ml IV 10 ml PRN PRN Administration LINE FLUSH Sodium Chloride 1,910 ml 11/02/19 18:06 Nacl 0.9% 1000 Ml 30 ml/kg (1910 ml) 11/02/19 18:07 IV ONCE ONE
[2019-11-02] MEDS ORDERED: VANCOMYCIN 1,250 MG in SODIUM CHLORIDE 0.9% 250ML 250 ML IV ONE (18:15)
[2019-11-02] MEDS ORDERED: SODIUM CHLORIDE 0.9% 1000 ML 1,000 ML IV SCH (18:30)
[2019-11-02] MEDS ORDERED: VANCOMYCIN PHARMACY TO DOSE IV SCH (19:00)
[2019-11-02 22:28] LABS: Basophils # (Auto) 0.1 K/mm3 (0.0-0.1); Basophils % (Auto) 1.1 % (0.0-1.8); Eosinophils # (Auto) 0.3 K/mm3 (0.0-0.4); Eosinophils % (Auto) 5.1 % (0.0-4.3); Hematocrit 26.2 % (35.5-45.6); Hemoglobin 8.7 gm/dl (11.8-15.2); Lymphocytes # (Auto) 1.4 K/mm3 (1.2-5.4); Lymphocytes % (Auto) 20.4 % (13.4-35.0); Mean Corpuscular HGB Conc 33 % (32-34); Mean Corpuscular Volume 90 fl (84-94); Monocytes # (Auto) 0.6 K/mm3 (0.0-0.8); Platelet Count 438 K/mm3 (140-440); Red Cell Distribution Width 17.8 % (13.2-15.2)
[2019-11-02] MEDS ORDERED: HEPARIN 5,000 UNIT/1 ML VIAL ONE ×2 (23:01→23:02)
[2019-11-02] MEDS: HEPARIN 5,000 UNIT/1 ML VIAL SUB-Q SCH (23:02)
[2019-11-03 03:41] LABS: Basophils # (Auto) 0.1 K/mm3 (0.0-0.1); Basophils % (Auto) 0.9 % (0.0-1.8); Eosinophils # (Auto) 0.3 K/mm3 (0.0-0.4); Eosinophils % (Auto) 4.8 % (0.0-4.3); Hematocrit 27.5 % (35.5-45.6); Hemoglobin 9.1 gm/dl (11.8-15.2); Lymphocytes # (Auto) 1.3 K/mm3 (1.2-5.4); Lymphocytes % (Auto) 18.6 % (13.4-35.0); Mean Corpuscular HGB Conc 33 % (32-34); Mean Corpuscular Volume 90 fl (84-94); Monocytes # (Auto) 0.7 K/mm3 (0.0-0.8); Monocytes % (Auto) 10.3 % (0.0-7.3); Platelet Count 445 K/mm3 (140-440); Red Blood Count 3.07 M/mm3 (3.65-5.03); Red Cell Distribution Width 17.7 % (13.2-15.2)
[2019-11-03 03:58] LABS: BUN/Creatinine Ratio 21; Blood Urea Nitrogen 21 mg/dL (9-20); Calcium 8.7 mg/dL (8.4-10.2); Hemolysis Index 0
[2019-11-03] MEDS ORDERED: cefTRIAXone/NS 2 GM/100 ML 2 GM/100 ML BAG IV ONE (10:29)
[2019-11-03] MEDS ORDERED: SODIUM CHLORIDE 0.9% 1000 ML 1,000 ML ONE ×2 (10:30→19:37)
[2019-11-03] MEDS ORDERED: HEPARIN 5,000 UNIT/1 ML VIAL ONE (10:31)
[2019-11-03] MEDS: HEPARIN 5,000 UNIT/1 ML VIAL SUB-Q SCH ×2 (10:41→23:16)
[2019-11-03] MEDS: cefTRIAXone/NS 2 GM/100 ML 2 GM/100 ML BAG IV SCH (11:15)
[2019-11-03] MEDS ORDERED: hydrALAZINE 20 MG/1 ML INJ IV ONE (12:20)
[2019-11-03] MEDS ORDERED: hydrALAZINE 20 MG/1 ML INJ ONE (12:27)
[2019-11-03] MEDS ORDERED: IBUPROFEN 800 MG TAB PO PRN (14:57)
--- NOTE | 2019-11-03 15:04 | Progress Note ---
Assessment and Plan - Patient Problems (1) Sepsis Current Visit: Yes Status: Acute Qualifiers: Severe sepsis shock status: unspecified Plan to address problem: Sepsis protocol: IV antibiotic therapy, blood cultures, urinalysis, CBC, CMP, chest x-ray, serial lactic acid level, monitor urine output every shift, IV fluid resuscitation therapy. Patient symptoms improved. Continue IV antibiotic therapy for full 10-day course as outpatient. Discharge planning in a.m. (2) Encephalopathy Current Visit: Yes Status: Acute Plan to address problem: CT head, neurochecks, aspiration precautions, CBC, CMP, thyroid panel. (3) New onset seizure Current Visit: Yes Status: Acute Plan to address problem: Treat sepsis, neurochecks, no active seizure at this time. Neurology consulted in ED. (4) UTI (urinary tract infection) Current Visit: Yes Status: Acute Qualifiers: Urinary tract infection type: acute cystitis Hematuria presence: without hematuria Qualified Code(s): N30.00 - Acute cystitis without hematuria Plan to address problem: Urinalysis, CBC, IV antibiotic therapy, (5) Acidosis Current Visit: Yes Status: Acute Plan to address problem: CMP, IV bicarbonate therapy, repeat CMP in a.m. IV fluid resuscitation therapy. (6) DVT prophylaxis Current Visit: Yes Status: Acute Plan to address problem: SCD to bilateral lower extremities while in bed, prophylactic heparin History Interval history: 59-year-old male hospital day 3 with urinary tract infection complicated by sepsis, acidosis, anemia, hypertension, and encephalopathy. Patient is nonverbal and unable to provide history. Lab and imaging studies reviewed. Patient treated in accordance with sepsis protocol. Patient lying in bed, patient is stuporous which is unchanged from his previous exam. Will repeat CBC in a.m., follow-up on blood and urine cultures that are still pending. Will adjust antibiotic therapy as clinically indicated. No reported nursing events overnight. Patient acidosis has resolved and leukocytosis has normalized. Con tinue antibiotic therapy. Discharge planning. Hospitalist Physical - Constitutional Vitals: Temp Pulse Resp BP Pulse Ox 98.5 F 107 H 20 156/71 100 11/03/19 10:55 11/03/19 13:00 11/03/19 13:00 11/03/19 13:00 11/03/19 13:00 General appearance: Present: no acute distress, cachectic - EENT Eyes: Present: miosis - Neck Neck: Present: supple - Respiratory Respiratory: bilateral: diminished - Cardiovascular Rhythm: regular Heart Sounds: Present: S1 & S2 Peripheral Pulses: within normal limits - Abdominal General gastrointestinal: soft, non-distended - Integumentary Integumentary: Present: clear - Psychiatric Psychiatric: no appropriate mood/affect, no intact judgment & insight, no memory intact - Neurologic Neurologic: focal deficits, no gait normal Results - Labs CBC & Chem 7: 11/03/19 03:13 11/03/19 03:13 Labs: Laboratory Last Values WBC 7.2 K/mm3 (4.5-11.0) 11/03/19 03:13 RBC 3.07 M/mm3 (3.65-5.03) L 11/03/19 03:13 Hgb 9.1 gm/dl (11.8-15.2) L 11/03/19 03:13 Hct 27.5 % (35.5-45.6) L 11/03/19 03:13 MCV 90 fl (84-94) 11/03/19 03:13 MCH 30 pg (28-32) 11/03/19 03:13 MCHC 33 % (32-34) 11/03/19 03:13 RDW 17.7 % (13.2-15.2) H 11/03/19 03:13 Plt Count 445 K/mm3 (140-440) H 11/03/19 03:13 Lymph % (Auto) 18.6 % (13.4-35.0) 11/03/19 03:13 [place] % (Auto) 10.3 % (0.0-7.3) H 11/03/19 03:13 Eos % (Auto) 4.8 % (0.0-4.3) H 11/03/19 03:13 Baso % (Auto) 0.9 % (0.0-1.8) 11/03/19 03:13 Lymph # 1.3 K/mm3 (1.2-5.4) 11/03/19 03:13 [place] # 0.7 K/mm3 (0.0-0.8) 11/03/19 03:13 Eos # 0.3 K/mm3 (0.0-0.4) 11/03/19 03:13 Baso # 0.1 K/mm3 (0.0-0.1) 11/03/19 03:13 Add Manual Diff Complete 11/01/19 19:14 Total Counted 100 11/01/19 19:14 Seg Neutrophils % 65.4 % (40.0-70.0) 11/03/19 03:13 Seg Neuts % (Manual) 72.0 % (40.0-70.0) H 11/01/19 19:14 Band Neutrophils % 0 % 11/01/19 19:14 Lymphocytes % (Manual) 18.0 % (13.4-35.0) 11/01/19 19:14 Reactive Lymphs % (Man) 0 % 11/01/19 19:14 Monocytes % (Manual) 4.0 % (0.0-7.3) 11/01/19 19:14 Eosinophils % (Manual) 4.0 % (0.0-4.3) 11/01/19 19:14 Basophils % (Manual) 0 % (0.0-1.8) 11/01/19 19:14 Metamyelocytes % 2.0 % 11/01/19 19:14 Myelocytes % 0 % 11/01/19 19:14 Promyelocytes % 0 % 11/01/19 19:14 Blast Cells % 0 % 11/01/19 19:14 Nucleated RBC % Not Reportable 11/01/19 19:14 Seg Neutrophils # 4.7 K/mm3 (1.8-7.7) 11/03/19 03:13 Seg Neutrophils # Man 11.1 K/mm3 (1.8-7.7) H 11/01/19 19:14 Band Neutrophils # 0.0 K/mm3 11/01/19 19:14 Lymphocytes # (Manual) 2.8 K/mm3 (1.2-5.4) 11/01/19 19:14 Abs React Lymphs (Man) 0.0 K/mm3 11/01/19 19:14 Monocytes # (Manual) 0.6 K/mm3 (0.0-0.8) 11/01/19 19:14 Eosinophils # (Manual) 0.6 K/mm3 (0.0-0.4) H 11/01/19 19:14 Basophils # (Manual) 0.0 K/mm3 (0.0-0.1) 11/01/19 19:14 Metamyelocytes # 0.3 K/mm3 11/01/19 19:14 Myelocytes # 0.0 K/mm3 11/01/19 19:14 Promyelocytes # 0.0 K/mm3 11/01/19 19:14 Blast Cells # 0.0 K/mm3 11/01/19 19:14 WBC Morphology Not Reportable 11/01/19 19:14 Hypersegmented Neuts Not Reportable 11/01/19 19:14 Hyposegmented Neuts Not Reportable 11/01/19 19:14 Hypogranular Neuts Not Reportable 11/01/19 19:14 Smudge Cells Not Reportable 11/01/19 19:14 Toxic Granulation Not Reportable 11/01/19 19:14 Toxic Vacuolation Not Reportable 11/01/19 19:14 Dohle Bodies Not Reportable 11/01/19 19:14 Pelger-Huet Anomaly Not Reportable 11/01/19 19:14 Shayla Rods Not Reportable 11/01/19 19:14 Platelet Estimate Appears increased 11/01/19 19:14 Clumped Platelets Not Reportable 11/01/19 19:14 Plt Clumps, EDTA Not Reportable 11/01/19 19:14 Large Platelets Not Reportable 11/01/19 19:14 Giant Platelets Not Reportable 11/01/19 19:14 Platelet Satelliting Not Reportable 11/01/19 19:14 Plt Morphology Comment Not Reportable 11/01/19 19:14 RBC Morphology Not Reportable 11/01/19 19:14 Dimorphic RBCs Not Reportable 11/01/19 19:14 Polychromasia Not Reportable 11/01/19 19:14 Hypochromasia Not Reportable 11/01/19 19:14 Poikilocytosis 1+ 11/01/19 19:14 Anisocytosis 1+ 11/01/19 19:14 Microcytosis Not Reportable 11/01/19 19:14 Macrocytosis Not Reportable 11/01/19 19:14 Spherocytes Not Reportable 11/01/19 19:14 Pappenheimer Bodies Not Reportable 11/01/19 19:14 Sickle Cells Not Reportable 11/01/19 19:14 Target Cells Not Reportable 11/01/19 19:14 Tear Drop Cells Not Reportable 11/01/19 19:14 Ovalocytes Not Reportable 11/01/19 19:14 Helmet Cells Not Reportable 11/01/19 19:14 Lu-[place] Bodies Not Reportable 11/01/19 19:14 [place] Rings Not Reportable 11/01/19 19:14 Justice Cells Not Reportable 11/01/19 19:14 Bite Cells Not Reportable 11/01/19 19:14 Crenated Cell Not Reportable 11/01/19 19:14 Elliptocytes Not Reportable 11/01/19 19:14 Acanthocytes (Spur) Not Reportable 11/01/19 19:14 Rouleaux Not Reportable 11/01/19 19:14 Hemoglobin C Crystals Not Reportable 11/01/19 19:14 Schistocytes Not Reportable 11/01/19 19:14 Malaria parasites Not Reportable 11/01/19 19:14 Edu Bodies Not Reportable 11/01/19 19:14 Hem Pathologist Commnt No 11/01/19 19:14 PT 16.9 Sec. (12.2-14.9) H 11/01/19 19:14 INR 1.35 (0.87-1.13) H 11/01/19 19:14 APTT 38.4 Sec. (24.2-36.6) H 11/01/19 19:14 Sodium 142 mmol/L (137-145) 11/03/19 03:13 Potassium 3.6 mmol/L (3.6-5.0) D 11/03/19 03:13 Chloride 106.1 mmol/L (98-107) 11/03/19 03:13 Carbon Dioxide 22 mmol/L (22-30) D 11/03/19 03:13 Anion Gap 18 mmol/L 11/03/19 03:13 BUN 21 mg/dL (9-20) H 11/03/19 03:13 Creatinine 1.0 mg/dL (0.8-1.5) 11/03/19 03:13 Estimated GFR > 60 ml/min 11/03/19 03:13 BUN/Creatinine Ratio 21 % 11/03/19 03:13 Glucose 108 mg/dL (75-100) H 11/03/19 03:13 Lactic Acid 0.90 mmol/L (0.7-2.0) 11/03/19 03:13 Calcium 8.7 mg/dL (8.4-10.2) 11/03/19 03:13 Total Bilirubin 0.30 mg/dL (0.1-1.2) 11/01/19 19:14 AST 51 units/L (5-40) H 11/01/19 19:14 ALT 76 units/L (7-56) H 11/01/19 19:14 Alkaline Phosphatase 91 units/L (35-129) 11/01/19 19:14 Ammonia 90.0 umol/L (25-60) H 11/01/19 19:14 Troponin T 0.020 ng/mL (0.00-0.029) 11/01/19 19:14 Total Protein 7.3 g/dL (6.3-8.2) 11/01/19 19:14 Albumin 3.2 g/dL (3.9-5) L 11/01/19 19:14 Albumin/Globulin Ratio 0.8 % 11/01/19 19:14 TSH 0.791 mlU/mL (0.270-4.200) 11/02/19 01:27 Free T4 1.56 ng/dL (0.76-1.46) H 11/02/19 01:27 Urine Color Yellow (Yellow) 11/01/19 20:57 Urine Turbidity Cloudy (Clear) 11/01/19 20:57 Urine pH 5.0 (5.0-7.0) 11/01/19 20:57 Ur Specific [place] 1.013 (1.003-1.030) 11/01/19 20:57 Urine Protein 30 mg/dl mg/dL (Negative) 11/01/19 20:57 Urine Glucose (UA) Neg mg/dL (Negative) 11/01/19 20:57 Urine Ketones Neg mg/dL (Negative) 11/01/19 20:57 Urine Blood Neg (Negative) 11/01/19 20:57 Urine Nitrite Neg (Negative) 11/01/19 20:57 Urine Bilirubin Neg (Negative) 11/01/19 20:57 Urine Urobilinogen < 2.0 mg/dL (<2.0) 11/01/19 20:57 Ur Leukocyte Esterase Mod (Negative) 11/01/19 20:57 Urine WBC (Auto) 83.0 /HPF (0.0-6.0) H 11/01/19 20:57 Urine RBC (Auto) 16.0 /HPF (0.0-6.0) 11/01/19 20:57 Hyaline Casts 4 /LPF 11/01/19 20:57 Urine Mucus Few /HPF 11/01/19 20:57 Ur Yeast w Hyphae Few /HPF 11/01/19 20:57 Urine Yeast (Budding) 2+ /HPF 11/01/19 20:57 Plasma/Serum Alcohol < 0.01 % (0-0.07) 11/01/19 19:14 Blood Type A POSITIVE 11/02/19 01:30 Antibody Screen Negative 11/02/19 01:30 Active Medications - Current Medications Current Medications: Generic Name Dose Route Start Last Admin Trade Name Freq PRN Reason Stop Dose Admin Acetaminophen 650 mg 11/02/19 01:10 Tylenol PO Q4H PRN Pain MILD(1-3)/Fever >100.5/KABA Acetaminophen 650 mg 11/02/19 03:57 Tylenol CO Q6H PRN Pain, Mild (1-3) Lipase/Protease/Amylase 1 each 11/02/19 13:[address] 10,500 Unit FEEDTUBE PRN PRN For Clogged Feeding Tube Atorvastatin Calcium 10 mg 11/03/19 22:00 Atorvastatin PO QHS CROW Citalopram Hydrobromide 10 mg 11/04/19 10:00 Celexa PO QDAY [facility] Clopidogrel Bisulfate 75 mg 11/04/19 10:00 Plavix PO DAILY [facility] Heparin Sodium (Porcine) 5,000 unit 11/02/19 22:00 11/03/19 10:41 Heparin SUB-Q 5,000 unit Q12HR CROW Administration Hydrochlorothiazide 25 mg 11/04/19 10:00 Hctz PO DAILY CROW Sodium Chloride 1,000 mls @ 125 mls/hr 11/02/19 01:15 11/02/19 06:25 Nacl 0.9% 1000 Ml IV 125 mls/hr DIRECT CROW Administration Ceftriaxone Sodium 2 gm in 100 mls @ 200 mls/hr 11/03/19 10:00 11/03/19 11:15 Rocephin/Ns 2 Gm/100 Ml IV 200 mls/hr Q24HR CROW Administration Protocol Sodium Chloride 1,000 mls @ 999 mls/hr 11/02/19 18:30 Nacl 0.9% 1000 Ml IV 11/03/19 19:31 DIRECT [facility] Ibuprofen 800 mg 11/03/19 14:57 Ibuprofen PO TID PRN Pain, Mild (1-3) Labetalol HCl 200 mg 11/03/19 22:00 Labetalol PO BID [facility] Lisinopril 40 mg 11/04/19 10:00 Zestril PO DAILY [facility] Nifedipine 30 mg 11/04/19 10:00 Procardia Xl PO DAILY [facility] Ondansetron HCl 4 mg 11/02/19 01:10 Zofran IV Q8H PRN Nausea And Vomiting Simple Syrup 15 ml 11/02/19 13:45 Simple Syrup FEEDTUBE PRN PRN Hypoglycemia Simple Syrup 30 ml 11/02/19 13:45 Simple Syrup FEEDTUBE PRN PRN Hypoglycemia Sodium Bicarbonate 325 mg 11/02/19 13:45 Sodium Bicarbonate FEEDTUBE PRN PRN For Clogged Feeding Tube Sodium Chloride 10 ml 11/02/19 10:00 11/03/19 11:17 Sodium Chloride Flush Syringe 10 Ml IV Not Given BID CROW Sodium Chloride 10 ml 11/02/19 01:10 11/02/19 11:45 Sodium Chloride Flush Syringe 10 Ml IV 10 ml PRN PRN Administration LINE FLUSH Tamsulosin HCl 0.4 mg 11/04/19 10:00 Flomax PO QDAY [facility] Nutrition/Malnutrition Assess - Dietary Evaluation Nutrition/Malnutrition Findings: Nutrition Notes Start: 11/03/19 12:57 Freq: Status: Active Protocol: Document 11/03/19 12:57 LP (Rec: 11/03/19 13:02 LP [id number]) Nutrition Notes Need for Assessment generated from: MD Order Initial or Follow up Assessment Current Diagnosis CKD(stage I-IV),Sepsis, Hypertension,Stroke Other Pertinent Diagnosis UTI, Encephalopathy Current Diet Jev[place] 1.2 at 70ml/hr Labs/Tests BG 108 Pertinent Medications NS at 125ml/hr Height 5 ft 9 in Weight 63.73 kg [place] Body Weight (kg) 72.72 BMI 20.7 Weight Status Appropriate Subjective/Other Information Consult for TF. Pt in ED. Burn Absent Trauma Absent Minimum of two criteria No #1 Nutrition Diagnosis Inadequate oral intake Etiology CVA As Evidenced by Signs and Symptoms Pt from [place] with PEG Is patient on ventilator? No Is Patient Ambulatory and/or Out of Bed No REE-([place]-confined to bed) 7507.920 Calculation Used for Recommendations [place] Additional Notes Protein needs are 51-64g (0.8- 1g/kg) Fluid needs are 1ml/kcal Nutrition Intervention Change Diet Order: TF Nutrition Support: Jevity 1.2 at 65ml/hr Flush with 100ml q4h Kcal 1,872 Protein (gm) 87 Fluid (mL) 1,259 Goal #1 Meet at least 80% of kcal and protein needs via TF Anticipated Discharge Needs: TF Follow-Up By: 11/04/[address] TF order, made NPO this AM
--- NOTE | 2019-11-03 15:06 | Progress Note ---
Assessment and Plan Cultures: Blood cultures 11/01/2019 - C albicans 10-100k CFU A/P: 59 yo M PMHx CVA, CAD s/p CABG, CKD admitted after seizures and now concern for UTI 1. Acute sepsis - present with leukocytosis and tachycardia. Likely secondary to UTI. Follow up blood cultures. Lactic acidosis likely 2/2 seizure; now resolved. 2. UTI - pending urine cultures, would continue ceftriaxone for now. Repeat CBC in AM. 3. CKD - renally dose antibiotics as appropriate 4. Candiduria - no need to treat, especially as symptoms have resolved. Recs: - follow up urine and blood cultures - repeat CBC in AM - continue ceftriaxone 2g q24h Thank you for the consult, we will continue to follow. Braulio Causey MD [facility] ([facility] M: [phone] O: [phone] F: [phone] Subjective Date of service: 11/03/19 Interval history: Afebrile, normal white count Objective - Exam Narrative Exam: Constitutional: Alert, cooperative. No acute distress, well developed. Head, Ears, Nose: Normocephalic, atraumatic. External ears, nose normal Eyes: Conjunctivae/corneas clear. No icterus. No ptosis. Neck: Supple, no meningeal signs Oral: dentition fair, no thrush Cardiovascular: S1, S2 normal. Respiratory: Good air entry, clear to auscultation bilaterally GI: Soft, non-tender; bowel sounds normal. No peritoneal signs. Musculoskeletal: No pedal edema, no cyanosis. R AKA, sacral wound Skin: No rash or abscess Hem/Lymphatic: No palpable cervical or supraclavicular nodes. No lymphangitis Psych: Mood ok. Affect normal Neurological: Awake, alert, oriented. No gross abnormality - Constitutional Vitals: Vital Signs Temp Pulse Resp BP Pulse Ox 98.5 F 107 H 20 156/71 100 11/03/19 10:55 11/03/19 13:00 11/03/19 13:00 11/03/19 13:00 11/03/19 13:00 Temperature -Last 24 Hours Temperature 98.5 F - Labs CBC & Chem 7: 11/03/19 03:13 11/03/19 03:13 Labs: Abnormal lab results 01/10/1011/03/19 11/03/19 Range/Units 22:00 03:13 03:13 RBC 2.90 L 3.07 L (3.65-5.03) M/mm3 Hgb 8.7 L 9.1 L (11.8-15.2) gm/dl Hct 26.2 L 27.5 L (35.5-45.6) % RDW 17.8 H 17.7 H (13.2-15.2) % Plt Count 445 H (140-440) K/mm3 [place] % (Auto) 9.0 H 10.3 H (0.0-7.3) % Eos % (Auto) 5.1 H 4.8 H (0.0-4.3) % BUN 21 H (9-20) mg/dL Glucose 108 H (75-100) mg/dL
--- NOTE | 2019-11-03 15:11 | Consultation ---
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 Patient was noted to have had seizures while at his alf, which began two days ago. Patient was brought to [facility] for further evaluation. Patient was given ativan and keppra, after which seizures stopped. He was found to have a UTI, sepsis, and acidosis. According to his , at baseline, patient is mostly non-verbal, bed-bound, follows 1-step commands. Past History Past Medical History: other (See HPI) Past Surgical History: Other (Right leg amputation 10/30/19, ) Social history: no significant social history, other (lives at alf) Family history: CAD, diabetes Medications and Allergies Allergies Allergy/AdvReac Type Severity Reaction Status Date / Time No Known Allergies Allergy Verified 11/01/19 18:46 Home Medications Medication Instructions Recorded Confirmed Last Taken Type Amantadine [Symmetrel] 11/03/19 Unknown History AtorvaSTATin [Lipitor] 10 mg PO QHS 11/03/19 11/03/19 Unknown History Citalopram [celeXA] 10 mg PO QDAY 11/03/19 11/03/19 Unknown History Clopidogrel [Plavix] 75 mg PO DAILY 11/03/19 11/03/19 Unknown History Ibuprofen [Motrin 800 MG tab] 800 mg PO TID PRN 11/03/19 11/03/19 Unknown History NIFEdipine [Nifedipine ER] 30 mg PO DAILY 11/03/19 11/03/19 Unknown History Tamsulosin [Flomax] 0.4 mg PO QDAY 11/03/19 11/03/19 Unknown History hydroCHLOROthiazide [HCTZ] 25 mg PO DAILY 11/03/19 11/03/19 Unknown History labetaloL [Labetalol 200mg TAB] 200 mg PO BID 11/03/19 11/03/19 Unknown History lisinopriL [Zestril TAB] 40 mg PO DAILY 11/03/19 11/03/19 Unknown History Active Meds: Active Medications Acetaminophen (Tylenol) 650 mg PO Q4H PRN PRN Reason: Pain MILD(1-3)/Fever >100.5/KABA Acetaminophen (Tylenol) 650 mg MN Q6H PRN PRN Reason: Pain, Mild (1-3) Lipase/Protease/Amylase (Pancreaze Dr 10,500 Unit) 1 each FEEDTUBE PRN PRN PRN Reason: For Clogged Feeding Tube Atorvastatin Calcium (Atorvastatin) 10 mg PO QHS [facility] Citalopram Hydrobromide (Celexa) 10 mg PO QDAY [facility] Clopidogrel Bisulfate (Plavix) 75 mg PO DAILY [facility] Heparin Sodium (Porcine) (Heparin) 5,000 unit SUB-Q Q12HR [facility] Last Admin: 11/03/19 10:41 Dose: 5,000 unit Documented by: Hydrochlorothiazide (Hctz) 25 mg PO DAILY [facility] Sodium Chloride (Nacl 0.9% 1000 Ml) 1,000 mls @ 125 mls/hr IV DIRECT [facility] Last Admin: 11/02/19 06:25 Dose: 125 mls/hr Documented by: Ceftriaxone Sodium (Rocephin/Ns 2 Gm/100 Ml) 2 gm in 100 mls @ 200 mls/hr IV Q24HR [facility]; Protocol Last Admin: 11/03/19 11:15 Dose: 200 mls/hr Documented by: Sodium Chloride (Nacl 0.9% 1000 Ml) 1,000 mls @ 999 mls/hr IV DIRECT [facility] Stop: 11/03/19 19:31 Ibuprofen (Ibuprofen) 800 mg PO TID PRN PRN Reason: Pain, Mild (1-3) Labetalol HCl (Labetalol) 200 mg PO BID [facility] Lisinopril (Zestril) 40 mg PO DAILY [facility] Nifedipine (Procardia Xl) 30 mg PO DAILY [facility] Ondansetron HCl (Zofran) 4 mg IV Q8H PRN PRN Reason: Nausea And Vomiting Simple Syrup (Simple Syrup) 15 ml FEEDTUBE PRN PRN PRN Reason: Hypoglycemia Simple Syrup (Simple Syrup) 30 ml FEEDTUBE PRN PRN PRN Reason: Hypoglycemia Sodium Bicarbonate (Sodium Bicarbonate) 325 mg FEEDTUBE PRN PRN PRN Reason: For Clogged Feeding Tube Sodium Chloride (Sodium Chloride Flush Syringe 10 Ml) 10 ml IV BID [facility] Last Admin: 11/03/19 11:17 Dose: Not Given Documented by: Sodium Chloride (Sodium Chloride Flush Syringe 10 Ml) 10 ml IV PRN PRN PRN Reason: LINE FLUSH Last Admin: 11/02/19 11:45 Dose: 10 ml Documented by: Tamsulosin HCl (Flomax) 0.4 mg PO QDAY [facility] Review of Systems ROS unobtainable: due to mental status (non-verbal at baseline) Physical Examination - Vital Signs Vital Signs: Vital Signs Temp Pulse Resp BP Pulse Ox 100.1 F H 133 H 26 H 130/74 28 L 11/01/19 19:03 11/01/19 19:03 11/01/19 19:03 11/01/19 19:03 11/01/19 19:03 - Physical Exam Narrative exam: Patient is alert, awake, nonverbal, which is his baseline, follows 1-step commands. PERRL, EOMI, Left HH noted, no facial weakness noted, tongue midline, b/l intact to LT. Aphasia noted. 3/5 in UE, 2/5 in LLE, RLE amputation noted. B/l intact to LT. Unable to assess FTN/HTS. 2+ reflexes throughout. - Constitutional General appearance: comfortable - EENT EENT: Present: ATNC, PERRL, mucous membranes moist - Respiratory Respiratory: Present: lungs clear, normal breath sounds - Cardiovascular Cardiovascular: Present: regular rate, normal S1, normal S2 Extremities: Present: no clubbing, cyanosis, other (RLE amputation) - Gastrointestinal Gastrointestinal: Present: normoactive bowel sounds, soft, non-tender Results - Laboratory Findings CBC and BMP: 11/03/19 03:13 11/03/19 03:13 Abnormal Lab Findings: Abnormal Labs 11/01/19 11/01/19 11/01/19 19:14 19:14 19:14 WBC 15.4 H RBC 3.05 L Hgb 8.9 L Hct 30.1 L MCV 99 H MCHC 30 L RDW 18.5 H Plt Count 515 H [place] % (Auto) Eos % (Auto) Seg Neuts % (Manual) 72.0 H Seg Neutrophils # Man 11.1 H Eosinophils # (Manual) 0.6 H PT 16.9 H INR 1.35 H APTT 38.4 H Chloride 95.8 L Carbon Dioxide 5 L* BUN 22 H Glucose Lactic Acid AST 51 H ALT 76 H Ammonia Albumin 3.2 L TSH Free T4 Urine WBC (Auto) 11/01/19 11/01/19 11/01/19 19:14 19:14 19:14 WBC RBC Hgb Hct MCV MCHC RDW Plt Count [place] % (Auto) Eos % (Auto) Seg Neuts % (Manual) Seg Neutrophils # Man Eosinophils # (Manual) PT INR APTT Chloride Carbon Dioxide BUN Glucose Lactic Acid 20.20 H* AST ALT Ammonia 90.0 H Albumin TSH 5.280 H Free T4 Urine WBC (Auto) 11/01/19 11/01/19 11/02/19 20:57 21:17 01:27 WBC RBC Hgb Hct MCV MCHC RDW Plt Count [place] % (Auto) Eos % (Auto) Seg Neuts % (Manual) Seg Neutrophils # Man Eosinophils # (Manual) PT INR APTT Chloride Carbon Dioxide BUN Glucose Lactic Acid 5.60 H* AST ALT Ammonia Albumin TSH Free T4 1.56 H Urine WBC (Auto) 83.0 H 11/02/19 11/03/19 11/03/19 22:00 03:13 03:13 WBC RBC 2.90 L 3.07 L Hgb 8.7 L 9.1 L Hct 26.2 L 27.5 L MCV MCHC RDW 17.8 H 17.7 H Plt Count 445 H [place] % (Auto) 9.0 H 10.3 H Eos % (Auto) 5.1 H 4.8 H Seg Neuts % (Manual) Seg Neutrophils # Man Eosinophils # (Manual) PT INR APTT Chloride Carbon Dioxide BUN 21 H Glucose 108 H Lactic Acid AST ALT Ammonia Albumin TSH Free T4 Urine WBC (Auto) Assessment and Plan Patient is a 59 y/o man w/ a h/o SAH and 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 According to the patient's clinical findings, he has likely had a seizure. In support of this diagnosis, patient has a h/o SAH and CVA, which increases his risk of seizure, and patient further was found to have UTI, acidosis, and sepsis on admission. Plan: 1. Seizure: - CT head: no acute abnormality - Discussed with patient's , who agreed for patient to be started on long- term seizure medication, given baseline of SAH and CVA. Discussed risks/benefits, and she agreed to start keppra. - Keppra 750mg BID - Per , he is back to baseline now of mental status, and was not noted to have any more seizures. Therefore, EEG may not be of much added diagnostic benefit at this time. - Continue to treat UTI/acidosis/sepsis per primary team. - Will continue to monitor patient. Thank you for allowing me to take part in the care of this patient. Tip Montes MD Neurology
[2019-11-03] MEDS ORDERED: VANCOMYCIN/NS 1 GM/250 ML 1 GM/250 ML BAG IV SCH (20:00)
[2019-11-03] MEDS: levETIRAcetam 750 MG in DEXTROSE 5% IN WATER 100 ML IV SCH (23:16)
[2019-11-04] MEDS ORDERED: hydrALAZINE 20 MG/1 ML INJ IV SCH
[2019-11-04] MEDS: SODIUM CHLORIDE 0.9% 1000 ML 1,000 ML IV SCH (03:41)
[2019-11-04] MEDS ORDERED: hydrALAZINE 20 MG/1 ML INJ IV PRN (03:49)
[2019-11-04 08:52] LABS: Basophils % (Auto) 0.7 % (0.0-1.8); Eosinophils # (Auto) 0.2 K/mm3 (0.0-0.4); Eosinophils % (Auto) 3.6 % (0.0-4.3); Hematocrit 24.7 % (35.5-45.6); Hemoglobin 7.9 gm/dl (11.8-15.2); Lymphocytes # (Auto) 1.2 K/mm3 (1.2-5.4); Lymphocytes % (Auto) 19.1 % (13.4-35.0); Mean Corpuscular HGB Conc 32 % (32-34); Mean Corpuscular Volume 90 fl (84-94); Monocytes # (Auto) 0.6 K/mm3 (0.0-0.8); Monocytes % (Auto) 9.1 % (0.0-7.3); Platelet Count 353 K/mm3 (140-440); Red Blood Count 2.73 M/mm3 (3.65-5.03); Red Cell Distribution Width 18.2 % (13.2-15.2)
[2019-11-04 09:12] VITALS: BP 170/94
[2019-11-04 09:14] LABS: BUN/Creatinine Ratio 21; Blood Urea Nitrogen 17 mg/dL (9-20); Calcium 8.1 mg/dL (8.4-10.2); Hemolysis Index 111
[2019-11-04] MEDS ORDERED: CITALOPRAM 10 MG TAB PO SCH (10:00)
[2019-11-04] MEDS ORDERED: LISINOPRIL 40 MG TAB PO SCH (10:00)
[2019-11-04] MEDS ORDERED: TAMSULOSIN 0.4 MG CAP PO SCH (10:00)
[2019-11-04] MEDS ORDERED: NIFEdipine XL 30 MG TAB PO SCH (10:00)
[2019-11-04] MEDS ORDERED: CLOPIDOGREL 75 MG TAB PO SCH (10:00)
[2019-11-04] MEDS ORDERED: hydroCHLOROthiazide 25 MG TAB PO SCH (10:00)
[2019-11-04] MEDS: HEPARIN 5,000 UNIT/1 ML VIAL SUB-Q SCH (10:18)
[2019-11-04] MEDS: cefTRIAXone/NS 2 GM/100 ML 2 GM/100 ML BAG IV SCH (10:18)
[2019-11-04] MEDS: levETIRAcetam 750 MG in DEXTROSE 5% IN WATER 100 ML IV SCH (10:43)
--- NOTE | 2019-11-04 11:11 | Discharge Summary ---
Providers - Providers Date of Admission: 11/01/19 23:48 Attending physician: ARTEMIO CHAPIN MD 11/02/19 01:14 Consult to Physician [CONS] Routine Comment: Consulting Provider: LAVELL LOPEZ Physician Instructions: Reason For Exam: seizures 11/02/19 04:41 Consult to Physician [CONS] Routine Comment: Consulting Provider: PRITI BELL Physician Instructions: Reason For Exam: sepsis 11/02/19 04:42 Consult to Wound/ET Nurse [CONS] Routine Reason For Exam: wound eval 11/02/19 13:45 Consult to Dietitian/Nutrition [CONS] Routine Physician Instructions: Assess nutrtn needs, initiate, modify, manage TF Reason For Exam: Reason for Consult: Write/Manage Tube Feeding Reason for Consult: Write/Manage Tube Feeding Primary care physician: PAOLA SMITH Hospitalization Condition: Stable Hospital course: 59-year-old man who was brought from [facility] for multiple seizures. he has a recent right lower extremity amputation due to infection and sepsis. -he was seen by neurology and given her history of subacute arachnoid hemorrhage and CVA it was decided that he should be started on long-term antiepileptic drugs, as he is at risk for future episodes of seizure he was treated with antibiotics but when his urine culture only grew Ivana, he was switched to antifungal x14 month Case discussed with . Preventative health counseling performed for 17 minutes Diagnosis Sepsis Ivana UTI Acute metabolic encephalopathy Status epilepticus Disposition: DC/[place]-03 [facility] Time spent for discharge: 35 minutes Core Measure Documentation - Palliative Care Palliative Care/ Comfort Measures: Not Applicable - Core Measures Any of the following diagnoses?: none Exam - Constitutional Vitals: Temp Pulse Resp BP Pulse Ox 98.5 F 101 H 18 170/94 99 11/04/19 09:09 11/04/19 10:18 11/04/19 10:00 11/04/19 10:18 11/04/19 09:09 General appearance: Present: no acute distress, well-nourished - EENT Eyes: Present: PERRL ENT: hearing intact, clear oral mucosa - Neck Neck: Present: supple, normal ROM - Respiratory Respiratory effort: normal Respiratory: bilateral: CTA - Cardiovascular Heart Sounds: Present: S1 & S2. Absent: rub, click - Extremities Extremities: pulses symmetrical, No edema Peripheral Pulses: within normal limits - Abdominal General gastrointestinal: Present: soft, non-tender, non-distended, normal bowel sounds Male genitourinary: Present: normal - Integumentary Integumentary: Present: clear, warm, dry - Musculoskeletal Musculoskeletal: generalized weakness - Psychiatric Psychiatric: no appropriate mood/affect, no intact judgment & insight, other (non verbal, opens eyes) - Neurologic Neurologic: other (bed bound and demented) Plan Follow up with: PAOLA SMITH MD [Primary Care Provider] - 3-5 Days Prescriptions: Fluconazole [Diflucan TAB] 200 mg PO QDAY #28 tablet levETIRAcetam [Keppra TAB] 750 mg PO BID #60 tablet
--- NOTE | 2019-11-04 12:48 | Progress Note ---
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 According to the patient's clinical findings, he has likely had a seizure. In support of this diagnosis, patient has a h/o SAH and CVA, which increases his risk of seizure, and patient further was found to have UTI, acidosis, and sepsis on admission. Plan: 1. Seizure: - CT head: no acute abnormality - Discussed with patient's , who agreed for patient to be started on long- term seizure medication, given baseline of SAH and CVA. Discussed risks/benefits, and she agreed to start keppra. - Cont. Keppra 750mg BID - Per , he is back to baseline now of mental status since yesterday, and was not noted to have any more seizures. - Continue to treat UTI/acidosis/sepsis per primary team. - Will sign off, as neurologic investigations complete, and treatment plan is in place. Please call with any questions. Thank you for allowing me to take part in the care of this patient. Tip Montes MD Neurology Subjective Date of service: 11/04/19 Principal diagnosis: Seizure Interval history: No acute events overnight. Objective - Exam Narrative Exam: Patient is alert, awake, nonverbal, which is his baseline, follows 1-step commands. PERRL, EOMI, Left HH noted, no facial weakness noted, tongue midline, b/l intact to LT. Aphasia noted. 3/5 in RUE, 2/5 in LUE which is baseline 2/5 in LLE, RLE amputation noted. B/l intact to LT. Unable to assess FTN/HTS. 2+ reflexes in RUE, 3+ in LUE/LLE. - Vital Sign Vital Signs - 12hr 11/04/19 11/04/19 11/04/19 03:23 07:45 09:09 Temperature 98.1 F 98.5 F Pulse Rate 92 H 99 H 101 H Respiratory 18 18 Rate Blood Pressure 140/83 170/94 O2 Sat by Pulse 99 99 Oximetry 11/04/19 11/04/19 11/04/19 10:00 10:17 10:18 Temperature Pulse Rate 101 H 101 H Respiratory 18 Rate Blood Pressure 170/94 170/94 O2 Sat by Pulse Oximetry - General Apperance Constitutional: comfortable - EENT EENT: ATNC, PERRL, mucous membranes moist - Respiratory Respiratory: lungs clear, normal breath sounds - Cardiovascular Cardiovascular: regular rate, normal S1, normal S2 Extremities: no clubbing, cyanosis - Gastrointestinal Gastrointestinal: normoactive bowel sounds, soft, non-tender - Laboratory Findings CBC and BMP: 11/04/19 07:32 11/04/19 07:32 Abnormal Lab Findings: Abnormal Labs 11/01/19 11/01/19 11/01/19 19:14 19:14 19:14 WBC 15.4 H RBC 3.05 L Hgb 8.9 L Hct 30.1 L MCV 99 H MCHC 30 L RDW 18.5 H Plt Count 515 H [place] % (Auto) Eos % (Auto) Seg Neuts % (Manual) 72.0 H Seg Neutrophils # Man 11.1 H Eosinophils # (Manual) 0.6 H PT 16.9 H INR 1.35 H APTT 38.4 H Chloride 95.8 L Carbon Dioxide 5 L* BUN 22 H Glucose POC Glucose Lactic Acid Calcium AST 51 H ALT 76 H Ammonia Albumin 3.2 L TSH Free T4 Urine WBC (Auto) 11/01/19 11/01/19 11/01/19 19:14 19:14 19:14 WBC RBC Hgb Hct MCV MCHC RDW Plt Count [place] % (Auto) Eos % (Auto) Seg Neuts % (Manual) Seg Neutrophils # Man Eosinophils # (Manual) PT INR APTT Chloride Carbon Dioxide BUN Glucose POC Glucose Lactic Acid 20.20 H* Calcium AST ALT Ammonia 90.0 H Albumin TSH 5.280 H Free T4 Urine WBC (Auto) 11/01/19 11/01/19 11/02/19 20:57 21:17 01:27 WBC RBC Hgb Hct MCV MCHC RDW Plt Count [place] % (Auto) Eos % (Auto) Seg Neuts % (Manual) Seg Neutrophils # Man Eosinophils # (Manual) PT INR APTT Chloride Carbon Dioxide BUN Glucose POC Glucose Lactic Acid 5.60 H* Calcium AST ALT Ammonia Albumin TSH Free T4 1.56 H Urine WBC (Auto) 83.0 H 11/02/19 11/03/19 11/03/19 22:00 03:13 03:13 WBC RBC 2.90 L 3.07 L Hgb 8.7 L 9.1 L Hct 26.2 L 27.5 L MCV MCHC RDW 17.8 H 17.7 H Plt Count 445 H [place] % (Auto) 9.0 H 10.3 H Eos % (Auto) 5.1 H 4.8 H Seg Neuts % (Manual) Seg Neutrophils # Man Eosinophils # (Manual) PT INR APTT Chloride Carbon Dioxide BUN 21 H Glucose 108 H POC Glucose Lactic Acid Calcium AST ALT Ammonia Albumin TSH Free T4 Urine WBC (Auto) 11/04/19 11/04/19 11/04/19 07:32 07:32 08:49 WBC RBC 2.73 L Hgb 7.9 L Hct 24.7 L MCV MCHC RDW 18.2 H Plt Count [place] % (Auto) 9.1 H Eos % (Auto) Seg Neuts % (Manual) Seg Neutrophils # Man Eosinophils # (Manual) PT INR APTT Chloride 109.6 H Carbon Dioxide 18 L BUN Glucose 121 H POC Glucose 123 H Lactic Acid Calcium 8.1 L AST ALT Ammonia Albumin TSH Free T4 Urine WBC (Auto)
--- NOTE | 2019-11-04 14:41 | Progress Note ---
Assessment and Plan Cultures: Blood cultures 11/01/2019 - C albicans 10-100k CFU A/P: 59 yo M PMHx CVA, CAD s/p CABG, CKD admitted after seizures and now concern for UTI 1. Acute sepsis - present with leukocytosis and tachycardia. Likely secondary to UTI. Follow up blood cultures. Lactic acidosis likely 2/2 seizure; now resolved. 2. UTI - pending urine cultures, would continue ceftriaxone for now. Repeat CBC in AM. 3. CKD - renally dose antibiotics as appropriate 4. Candiduria - no need to treat, especially as symptoms have resolved. Recs: - leukocytosis was likely secondary to seizure - continue ceftriaxone inpatient - discharge with Keflex 500mg q12h until 11/06/2019 Thank you for the consult, we will sign off. Please call with questions. Braulio Causey MD [facility] ([facility]) M: [phone] O: [phone] F: [phone] Subjective Date of service: 11/04/19 Principal diagnosis: Seizure Interval history: No fevers, no white count. Not responsive but awake Objective - Exam Narrative Exam: Constitutional: Alert, not cooperative with exam. No acute distress, well developed. Head, Ears, Nose: Normocephalic, atraumatic. External ears, nose normal Eyes: Conjunctivae/corneas clear. No icterus. No ptosis. Neck: Supple, no meningeal signs Oral: dentition fair, no thrush Cardiovascular: S1, S2 normal. Respiratory: Good air entry, clear to auscultation bilaterally GI: Soft, non-tender; bowel sounds normal. No peritoneal signs. Musculoskeletal: No pedal edema, no cyanosis. R AKA, sacral wound Skin: No rash or abscess Hem/Lymphatic: No palpable cervical or supraclavicular nodes. No lymphangitis Psych: Mood ok. Affect normal Neurological: Awake, alert, non-verbal. No gross abnormality - Constitutional Vitals: Vital Signs Temp Pulse Resp BP Pulse Ox 98.5 F 101 H 18 170/94 99 11/04/19 09:09 11/04/19 10:18 11/04/19 10:00 11/04/19 10:18 11/04/19 09:09 Temperature -Last 24 Hours Temperature 98.5 F Temperature 98.1 F Temperature 97.2 F Temperature 99.1 F Temperature 98.4 F - Labs CBC & Chem 7: 11/04/19 07:32 11/04/19 07:32 Labs: Abnormal lab results 11/04/19 11/04/19 11/04/19 Range/Units 07:32 07:32 08:49 RBC 2.73 L (3.65-5.03) M/mm3 Hgb 7.9 L (11.8-15.2) gm/dl Hct 24.7 L (35.5-45.6) % RDW 18.2 H (13.2-15.2) % [place] % (Auto) 9.1 H (0.0-7.3) % Chloride 109.6 H (98-107) mmol/L Carbon Dioxide 18 L (22-30) mmol/L Glucose 121 H (75-100) mg/dL POC Glucose 123 H (70-105) Calcium 8.1 L (8.4-10.2) mg/dL
[2019-11-05] MEDS ORDERED: amLODIPine 10 MG TAB PO SCH (10:00)
== END 2019-11-04 17:09 | DRG 871 ==
LOC: ED 18:27 → IMCU 23:48 → 4A 11-03 16:22
PROVIDERS: ADMIT Internal Medicine Geriatric Medicine; ATTEND Internal Medicine
DX: A41.9 Sepsis, unspecified organism (principal); G92 Toxic encephalopathy; R56.9 Unspecified convulsions; I25.2 Old myocardial infarction; N18.9 Chronic kidney disease, unspecified; B37.41 Candidal cystitis and urethritis; I12.9 Hypertensive chronic kidney disease with stage 1 through stage 4 chronic kidney disease, or unspecified chronic kidney disease; I25.10 Atherosclerotic heart disease of native coronary artery without angina pectoris; D64.9 Anemia, unspecified; R64 Cachexia; Z68.20 Body mass index [BMI] 20.0-20.9, adult; I69.320 Aphasia following cerebral infarction; I69.354 Hemiplegia and hemiparesis following cerebral infarction affecting left non-dominant side; Z95.1 Presence of aortocoronary bypass graft
CPT/HCPCS: 36415; 70450; 71045; 80048; 80053; 80320; 81001; 82140; 82962; 84439; 84443; 84484; 85007; 85025; 85610; 85730; 86850; 86900; 86901; 87040; 87086; 87116; 93005; 93010; 96374; G0378; A9270-GY; G0480; J0360; J0696; J1644; J1953; J2060; J3370; J7030; J7040; J7050

== ENCOUNTER 2020-06-28 20:31 | Inpatient (IN) | payer MEDICAID ==
--- NOTE | 2020-06-28 21:32 | Emergency Department Report ---
ED Shortness of Breath HPI - General Chief Complaint: Dyspnea/Respdistress Stated Complaint: MELISA Time Seen by Provider: 06/28/20 20:49 Source: EMS Mode of arrival: Wheelchair Limitations: Altered Mental Status, Physical Limitation - History of Present Illness Initial Comments: 60-year-old male, history of CHF, chronic kidney disease, CVA, CAD, subarachnoid hemorrhage, from [facility] transported to ED with shortness of breath. Nurses at the intermediate for the patient began exhibiting some shortness of breath shortly before 911 was called. Patient tested positive for COVID-19 back in December, but has since had a negative COVID-19 last month. EMS reports patient with O2 sats of 90% on room air. [facility] reports that patient is at his baseline, paperwork reports patient is aphasic. MD Complaint: shortness of breath -: This evening Consistency: constant Improves With: nothing Worsens With: nothing Known History Of: congestive heart failure Treatments Prior to Arrival: oxygen - Related Data Home Medications Medication Instructions Recorded Confirmed Last Taken Amantadine [Symmetrel] 11/03/19 Unknown AtorvaSTATin 10 mg PO QHS 11/03/19 11/03/19 Unknown Citalopram [celeXA] 10 mg PO QDAY 11/03/19 11/03/19 Unknown Clopidogrel [Plavix] 75 mg PO DAILY 11/03/19 11/03/19 Unknown Ibuprofen [Motrin 800 MG tab] 800 mg PO TID PRN 11/03/19 11/03/19 Unknown NIFEdipine [Nifedipine ER] 30 mg PO DAILY 11/03/19 11/03/19 Unknown Tamsulosin [Flomax] 0.4 mg PO QDAY 11/03/19 11/03/19 Unknown hydroCHLOROthiazide [HCTZ] 25 mg PO DAILY 11/03/19 11/03/19 Unknown labetaloL [Labetalol 200mg TAB] 200 mg PO BID 11/03/19 11/03/19 Unknown lisinopriL [Zestril TAB] 40 mg PO DAILY 11/03/19 11/03/19 Unknown Previous Rx's Medication Instructions Recorded Last Taken Type Fluconazole [Diflucan TAB] 200 mg PO QDAY #28 tablet 11/04/19 Unknown Rx levETIRAcetam [Keppra TAB] 750 mg PO BID #60 tablet 11/04/19 Unknown Rx Ondansetron [Zofran Odt] 4 mg PO Q6HR PRN #20 tab.rapdis 06/04/20 Unknown Rx levoFLOXacin [Levaquin TAB] 500 mg PO QDAY 10 Days #10 tablet 06/04/20 Unknown Rx Allergies Allergy/AdvReac Type Severity Reaction Status Date / Time No Known Allergies Allergy Verified 11/01/19 18:46 ED Review of Systems ROS: Stated complaint: MELISA Other details as noted in HPI Comment: Unobtainable due to pts medical conditions Respiratory: shortness of breath ED Past Medical Hx - Past Medical History Hx CVA: Yes Hx Heart Attack/AMI: Yes Hx Congestive Heart Failure: Yes Hx Renal Disease: Yes (Stage 3) Hx Seizures: Yes Additional medical history: Coronary artery disease, subarachnoid hemorrhage, Pyelonephritis - Surgical History Hx Open Heart Surgery: Yes Additional Surgical History: CABG, PEG tube 05/13/19, R leg amputation 2018 - Social History Smoking Status: Unknown if ever smoked Substance Use Type: None - Medications Home Medications: Home Medications Medication Instructions Recorded Confirmed Last Taken Type Amantadine [Symmetrel] 11/03/19 Unknown History AtorvaSTATin 10 mg PO QHS 11/03/19 11/03/19 Unknown History Citalopram [celeXA] 10 mg PO QDAY 11/03/19 11/03/19 Unknown History Clopidogrel [Plavix] 75 mg PO DAILY 11/03/19 11/03/19 Unknown History Ibuprofen [Motrin 800 MG tab] 800 mg PO TID PRN 11/03/19 11/03/19 Unknown History NIFEdipine [Nifedipine ER] 30 mg PO DAILY 11/03/19 11/03/19 Unknown History Tamsulosin [Flomax] 0.4 mg PO QDAY 11/03/19 11/03/19 Unknown History hydroCHLOROthiazide [HCTZ] 25 mg PO DAILY 11/03/19 11/03/19 Unknown History labetaloL [Labetalol 200mg TAB] 200 mg PO BID 11/03/19 11/03/19 Unknown History lisinopriL [Zestril TAB] 40 mg PO DAILY 11/03/19 11/03/19 Unknown History Fluconazole [Diflucan TAB] 200 mg PO QDAY #28 tablet 11/04/19 Unknown Rx levETIRAcetam [Keppra TAB] 750 mg PO BID #60 tablet 11/04/19 Unknown Rx Ondansetron [Zofran Odt] 4 mg PO Q6HR PRN #20 tab.rapdis 06/04/20 Unknown Rx levoFLOXacin [Levaquin TAB] 500 mg PO QDAY 10 Days #10 tablet 06/04/20 Unknown Rx ED Physical Exam - General Limitations: Altered Mental Status, Physical Limitation General appearance: alert - Head Head exam: Present: atraumatic, normocephalic - ENT ENT exam: Present: mucous membranes dry - Neck Neck exam: Present: normal inspection - Respiratory Respiratory exam: Present: rhonchi - Cardiovascular Cardiovascular Exam: Present: normal rhythm, tachycardia - GI/Abdominal GI/Abdominal exam: Present: soft, other (PEG tube in place). Absent: distended, tenderness - Extremities Exam Extremities exam: Present: other (right AKA present) - Neurological Exam Neurological exam: Present: altered (at baseline per intermediate), other (nonverbal, does not follow commands) - Skin Skin exam: Present: warm, dry, intact, normal color ED Course Vital Signs 06/28/20 06/28/20 06/28/20 21:04 21:12 22:58 Temperature 98.5 F 98.5 F Pulse Rate 128 H 124 H 133 H Respiratory 20 20 20 Rate Blood Pressure 151/99 Blood Pressure 151/99 159/97 [Right] O2 Sat by Pulse 96 98 100 Oximetry 06/29/20 06/29/20 06/29/20 00:30 00:31 02:11 Temperature Pulse Rate 115 H 116 H Respiratory 22 22 20 Rate Blood Pressure Blood Pressure 163/99 161/94 [Right] O2 Sat by Pulse 95 100 Oximetry ED Medical Decision Making - Lab Data Result diagrams: 06/28/20 21:45 06/28/20 21:45 - EKG Data -: EKG Interpreted by Ks EKG shows normal: sinus rhythm, axis, intervals, QRS complexes Rate: tachycardia (rate 135) - EKG Data Interpretation: nonspecific ST-T wave zach - Radiology Data Radiology results: report reviewed, image reviewed - Medical Decision Making 60-year-old male presents to ED for difficulty breathing from intermediate. Patient with O2 sats of 90% on room air with EMS as well as here in ED. Patient placed on 2 L of O2. On exam patient has very coarse breath sounds. Patient w as suctioned multiple times in order to remove this phlegm. Chest x-ray is negative for any acute findings such as infiltrate or pulmonary edema. Patient with persistent tachycardia and elevated d-dimer so VQ scan was obtained which showed low probability for PE. Patient was given 5 mg of metoprolol which improved his tachycardia from the 130s to the 110s. Labs show that patient appears to have a UTI, so Rocephin was given for this. Patient will be admitted to hospitalist, Dr Kee, for further management. - Differential Diagnosis pneumonia, CHF exacerbation, PE Critical care attestation.: If time is entered above; I have spent that time in minutes in the direct care of this critically ill patient, excluding procedure time. ED Disposition Clinical Impression: Hypoxia, Acute bronchitis, UTI (urinary tract infection) Disposition: OP ADMIT IP TO THIS HOSP Is pt being admited?: Yes Condition: Stable Time of Disposition: 02:15
[2020-06-28 22:12] LABS: Basophils % (Auto) 0.2 % (0.0-1.8); Eosinophils % (Auto) 0.1 % (0.0-4.3); Hematocrit 39.2 % (35.5-45.6); Hemoglobin 12.7 gm/dl (11.8-15.2); Lymphocytes # (Auto) 0.9 K/mm3 (1.2-5.4); Lymphocytes % (Auto) 8.6 % (13.4-35.0); Mean Corpuscular HGB Conc 32 % (32-34); Mean Corpuscular Volume 96 fl (84-94); Monocytes # (Auto) 0.8 K/mm3 (0.0-0.8); Monocytes % (Auto) 7.6 % (0.0-7.3); Platelet Count 210 K/mm3 (140-440); Red Cell Distribution Width 15.6 % (13.2-15.2)
[2020-06-28 22:25] LABS: Alanine Aminotransferase 30 units/L (7-56); Albumin 4.2 g/dL (3.9-5); BUN/Creatinine Ratio 26; Blood Urea Nitrogen 23 mg/dL (9-20); Hemolysis Index 68
--- NOTE | 2020-06-28 23:00 | XRay Report ---
CHEST 1 VIEW INDICATION: MAIN COMPARISON: 11/01/2019 FINDINGS: SUPPORT DEVICES: None. HEART / MEDIASTINUM: No significant abnormality. LUNGS / PLEURA: No significant pulmonary or pleural abnormality. No pneumothorax. ADDITIONAL FINDINGS: Median sternotomy changes are present. IMPRESSION: 1. No acute cardiopulmonary disease Signer Name: Dez Villasenor MD Signed: 06/28/2020 10:55 PM Workstation Name: [id number]
[2020-06-28] MEDS ORDERED: SODIUM CHLORIDE 0.9% 1000 ML 1,000 ML IV ONE (23:02)
[2020-06-28 23:05] LABS: Bilirubin,Urine NEG (Negative); Blood,Urine NEG (Negative); Color,Urine Yellow (Yellow); Mucus,Urine 1+ /HPF; Urobilinogen,Urine < 2.0 mg/dL (<2.0)
[2020-06-28] MEDS ORDERED: cefTRIAXone/NS 1 GM/50 ML 1 GM/50 ML BAG IV ONE (23:23)
[2020-06-28 23:36] LABS: INR 1.03 (0.87-1.13)
[2020-06-29] MEDS ORDERED: METOPROLOL TARTRATE 5 MG/5 ML INJ IV ONE (00:15)
--- NOTE | 2020-06-29 01:28 | Nuclear Medicine Report ---
TECHNICAL DATA: Chest imaging study dated 06/28/2020 is compared immediate static images of chest in multiple projections post I.V. injection. 3.4 mCi of 99m Tc MAA is administered intravenously. FINDINGS: The perfusion scan demonstrates homogeneous uptake without evidence of segmental or subsegmental defe cts. IMPRESSION: Perfusion scan is considered normal Signer Name: Dez Villasenor MD Signed: 06/29/2020 1:24 AM Workstation Name: [id number]
[2020-06-29] MEDS ORDERED: MAGNESIUM HYDROXIDE (MOM) ORAL LIQD UDC PO PRN (02:22)
[2020-06-29] MEDS ORDERED: ONDANSETRON 4 MG/2 ML INJ IV PRN (02:22)
[2020-06-29] MEDS ORDERED: ACETAMINOPHEN 325 MG TAB PO PRN (02:22)
--- NOTE | 2020-06-29 02:36 | History and Physical Report ---
History of Present Illness Date of examination: 06/29/20 Date of admission: 06/29/2020 Chief complaint: Shortness on breath History of present illness: 60-year-old male with known history of CVA, coronary artery disease, CHF, chronic kidney disease, history of subarachnoid hemorrhage was a resident of [facility] brought into the emergency room today for shortness of breath. Patient was said to be in respiratory distress and 911 was called.. He was said to have tested positive for COVID-19 in December 2019 but has since tested negative since then. He was said to have tested negative sometime in May 2020. According to paperwork from the custodial patient is aphasic. EMS also reports that patient's oxygen saturation was about 90% on room air. Patient unable to give any history because of his mental status. Work-up in the emergency room today reveals urinary tract infection. Chest x- ray and VQ scan were unremarkable. Patient was started on empiric IV antibiotics for UTI and for possible bronchitis. Past History Past Medical History: CAD, seizures, stroke, other (H/O pyelonephritis, Subarachnoid hemorrhage.) Past Surgical History: CABG, Other ( Right AKA in 2018, peg placement in 05/13/2019) Social history: no significant social history Family history: no significant family history Medications and Allergies Allergies Allergy/AdvReac Type Severity Reaction Status Date / Time No Known Allergies Allergy Verified 11/01/19 18:46 Home Medications Medication Instructions Recorded Confirmed Last Taken Type Amantadine [Symmetrel] 11/03/19 Unknown History AtorvaSTATin 10 mg PO QHS 11/03/19 11/03/19 Unknown History Citalopram [celeXA] 10 mg PO QDAY 11/03/19 11/03/19 Unknown History Clopidogrel [Plavix] 75 mg PO DAILY 11/03/19 11/03/19 Unknown History Ibuprofen [Motrin 800 MG tab] 800 mg PO TID PRN 11/03/19 11/03/19 Unknown History NIFEdipine [Nifedipine ER] 30 mg PO DAILY 11/03/19 11/03/19 Unknown History Tamsulosin [Flomax] 0.4 mg PO QDAY 11/03/19 11/03/19 Unknown History hydroCHLOROthiazide [HCTZ] 25 mg PO DAILY 11/03/19 11/03/19 Unknown History labetaloL [Labetalol 200mg TAB] 200 mg PO BID 11/03/19 11/03/19 Unknown History lisinopriL [Zestril TAB] 40 mg PO DAILY 11/03/19 11/03/19 Unknown History Fluconazole [Diflucan TAB] 200 mg PO QDAY #28 tablet 11/04/19 Unknown Rx levETIRAcetam [Keppra TAB] 750 mg PO BID #60 tablet 11/04/19 Unknown Rx Ondansetron [Zofran Odt] 4 mg PO Q6HR PRN #20 tab.rapdis 06/04/20 Unknown Rx levoFLOXacin [Levaquin TAB] 500 mg PO QDAY 10 Days #10 tablet 06/04/20 Unknown Rx Active Meds: Active Medications Acetaminophen (Tylenol) 650 mg PO Q4H PRN PRN Reason: Pain MILD(1-3)/Fever >100.5/KABA Heparin Sodium (Porcine) (Heparin) 5,000 unit SUB-Q Q8HR CROW Sodium Chloride (Nacl 0.9% 1000 Ml) 1,000 mls @ 75 mls/hr IV DIRECT CROW Magnesium Hydroxide (Milk Of Magnesia) 30 ml PO Q4H PRN PRN Reason: Constipation Ondansetron HCl (Zofran) 4 mg IV Q8H PRN PRN Reason: Nausea And Vomiting Sodium Chloride (Sodium Chloride Flush Syringe 10 Ml) 10 ml IV BID CROW Sodium Chloride (Sodium Chloride Flush Syringe 10 Ml) 10 ml IV PRN PRN PRN Reason: LINE FLUSH Review of Systems ROS unobtainable: due to mental status Exam - Constitutional Vitals: Temp Pulse Resp BP Pulse Ox 98.5 F 116 H 20 161/94 100 06/28/20 21:12 06/29/20 02:11 06/29/20 02:11 06/29/20 02:11 06/29/20 02:11 General appearance: Present: no acute distress, well-nourished - EENT Eyes: Present: PERRL, EOM intact. Absent: scleral icterus ENT: hearing intact, clear oral mucosa, dentition normal - Neck Neck: Present: supple, normal ROM - Respiratory Respiratory effort: normal Respiratory: bilateral: diminished - Cardiovascular Rhythm: regular Heart Sounds: Present: S1 & S2. Absent: gallop, systolic murmur, diastolic murmur, rub - Extremities Extremities: no ischemia, pulses intact, pulses symmetrical, No edema, Full ROM Peripheral Pulses: within normal limits - Abdominal General gastrointestinal: Present: soft, non-tender, non-distended, normal bowel sounds, other (Peg tube in place). Absent: mass - Integumentary Integumentary: Present: clear, warm, dry - Musculoskeletal Musculoskeletal: strength equal bilaterally, other (right AKA) - Psychiatric Psychiatric: cooperative - Neurologic Neurologic: CNII-XII intact, no focal deficits, moves all extremities HEART Score - HEART Score Troponin: Troponin T < 0.010 ng/mL (0.00-0.029) 06/28/20 21:45 Results - Labs CBC & Chem 7: 06/28/20 21:45 06/28/20 21:45 Labs: Abnormal lab results 06/28/20 06/28/20 06/28/20 Range/Units 21:45 21:45 21:45 MCV 96 H (84-94) fl RDW 15.6 H (13.2-15.2) % Lymph % (Auto) 8.6 L (13.4-35.0) % [place] % (Auto) 7.6 H (0.0-7.3) % Lymph # 0.9 L (1.2-5.4) K/mm3 Seg Neutrophils % 83.5 H (40.0-70.0) % Seg Neutrophils # 8.8 H (1.8-7.7) K/mm3 D-Dimer (0-234) ng/mlDDU Sodium 135 L (137-145) mmol/L Chloride 97.1 L (98-107) mmol/L Carbon Dioxide 20 L (22-30) mmol/L BUN 23 H (9-20) mg/dL Glucose 104 H (75-100) mg/dL NT-Pro-B Natriuret Pep 1908 H (0-900) pg/mL Total Protein 8.6 H (6.3-8.2) g/dL Urine WBC (Auto) (0.0-6.0) /HPF 06/28/20 06/28/20 Range/Units 22:50 22:58 MCV (84-94) fl RDW (13.2-15.2) % Lymph % (Auto) (13.4-35.0) % [place] % (Auto) (0.0-7.3) % Lymph # (1.2-5.4) K/mm3 Seg Neutrophils % (40.0-70.0) % Seg Neutrophils # (1.8-7.7) K/mm3 D-Dimer > 98150 H (0-234) ng/mlDDU Sodium (137-145) mmol/L Chloride (98-107) mmol/L Carbon Dioxide (22-30) mmol/L BUN (9-20) mg/dL Glucose (75-100) mg/dL NT-Pro-B Natriuret Pep (0-900) pg/mL Total Protein (6.3-8.2) g/dL Urine WBC (Auto) 179.0 H (0.0-6.0) /HPF Assessment and Plan - Patient Problems (1) Acute bronchitis Current Visit: Yes Status: Acute Plan to address problem: Patient placed on empiric IV antibiotics. (2) UTI (urinary tract infection) Current Visit: Yes Status: Acute Plan to address problem: He has been placed on empiric IV antibiotics. We will await urine culture result. (3) DVT prophylaxis Current Visit: No Status: Acute Plan to address problem: Patient placed on subcutaneous (4) Full code status Current Visit: Yes Status: Acute
[2020-06-29] MEDS ORDERED: SODIUM CHLORIDE 0.9% 1000 ML 1,000 ML ONE (03:27)
[2020-06-29] MEDS: SODIUM CHLORIDE 0.9% 1000 ML 1,000 ML IV SCH ×2 (03:29→16:43)
[2020-06-29] MEDS: HEPARIN 5,000 UNIT/1 ML VIAL SUB-Q SCH ×3 (06:01→21:50)
[2020-06-29] MEDS: cefTRIAXone/NS 1 GM/50 ML 1 GM/50 ML BAG IV SCH (09:52)
[2020-06-29] MEDS ORDERED: LIPASE 10,500/PROTEASE 25,000/AMYLASE 43,750 (UNITS) DR CAP FEEDTUBE PRN (11:59)
[2020-06-29] MEDS ORDERED: SODIUM BICARBONATE 325 MG TAB FEEDTUBE PRN (11:59)
[2020-06-29] MEDS ORDERED: SIMPLE SYRUP 15 ML FEEDTUBE PRN ×2 (11:59)
--- NOTE | 2020-06-29 14:31 | Vascular Lab Report ---
DUPLEX DOPPLER LOWER EXTREMITY VEINS, BILATERAL INDICATION: DVT. TECHNIQUE: Duplex doppler imaging was performed through the veins of both lower extremities using ve nous compression and other maneuvers. COMPARISON: No relevant prior imaging study available. FINDINGS: Right Common femoral vein: Negative. Right Superficial femoral vein: Negative. Right Popliteal vein: Negative. Right Calf veins: Negative. Left Common femoral vein: Negative. Left Superficial femoral vein: Negative. Left Popliteal vein: Negative. Left Calf veins: Negative. Additional findings: None.. IMPRESSION: No sonographic evidence for DVT in either lower extremity. Signer Name: Fernando Hernandez Jr, MD Signed: 06/29/2020 2:27 PM Workstation Name: [id number]
[2020-06-30] MEDS: HEPARIN 5,000 UNIT/1 ML VIAL SUB-Q SCH ×3 (06:23→22:17)
[2020-06-30] MEDS: SODIUM CHLORIDE 0.9% 1000 ML 1,000 ML IV SCH ×2 (06:25→19:45)
[2020-06-30 06:37] LABS: Basophils % (Auto) 0.4 % (0.0-1.8); Eosinophils # (Auto) 0.2 K/mm3 (0.0-0.4); Eosinophils % (Auto) 2.2 % (0.0-4.3); Hematocrit 29.7 % (35.5-45.6); Hemoglobin 9.9 gm/dl (11.8-15.2); Lymphocytes # (Auto) 1.1 K/mm3 (1.2-5.4); Mean Corpuscular HGB Conc 33 % (32-34); Mean Corpuscular Volume 95 fl (84-94); Monocytes # (Auto) 0.7 K/mm3 (0.0-0.8); Monocytes % (Auto) 10.3 % (0.0-7.3); Platelet Count 243 K/mm3 (140-440); Red Blood Count 3.13 M/mm3 (3.65-5.03); Red Cell Distribution Width 15.1 % (13.2-15.2)
[2020-06-30 06:44] LABS: INR 1.15 (0.87-1.13)
[2020-06-30 06:54] LABS: BUN/Creatinine Ratio 30; Blood Urea Nitrogen 18 mg/dL (9-20); Calcium 8.9 mg/dL (8.4-10.2); Hemolysis Index 0
[2020-06-30] MEDS: LISINOPRIL 10 MG TAB PO SCH (09:12)
[2020-06-30] MEDS: cefTRIAXone/NS 1 GM/50 ML 1 GM/50 ML BAG IV SCH (09:12)
[2020-06-30] MEDS ORDERED: DOXYCYCLINE 100 MG CAP PO SCH (10:00)
[2020-06-30] MEDS: MUPIROCIN 2% OINT 22 GM NS SCH ×2 (12:59→22:18)
--- NOTE | 2020-06-30 14:36 | Progress Note ---
Assessment and Plan Assessment and plan: Patient Problems (1) Acute bronchitis Current Visit: Yes Status: Acute Plan to address problem: Antibiotics (2) UTI (urinary tract infection) Current Visit: Yes Status: Acute Plan to address problem: Antibiotics. Awaiting urine culture (3) Hyponatremia Current Visit: No Status: Acute Plan to address problem: Trend Na (4) Anemia - dilutional Current Visit: No Status: Acute Plan to address problem: Monitor for now (5) DVT prophylaxis Current Visit: No Status: Acute Plan to address problem: Patient placed on subcutaneous (6) Full code status Current Visit: Yes Status: Acute History Interval history: Patient seen and examined at bedside this morning. He is alert but unable to make needs known. On antibiotics for UTI. Urine culture positive for staph aureus Hospitalist Physical - Constitutional Vitals: Temp Pulse Resp BP Pulse Ox 97.9 F 86 20 137/89 98 06/30/20 12:18 06/30/20 12:18 06/30/20 12:18 06/30/20 12:18 06/30/20 12:18 General appearance: Present: no acute distress - EENT Eyes: Present: PERRL - Neck Neck: Present: supple - Respiratory Respiratory: bilateral: diminished - Cardiovascular Rhythm: regular Heart Sounds: Present: S1 & S2 - Abdominal General gastrointestinal: soft, non-tender, non-distended, normal bowel sounds - Neurologic Neurologic: other (Awake) HEART Score - HEART Score Troponin: Troponin T < 0.010 ng/mL (0.00-0.029) 06/28/20 21:45 Results - Labs CBC & Chem 7: 06/30/20 05:38 06/30/20 05:38 Labs: Laboratory Last Values WBC 7.1 K/mm3 (4.5-11.0) 06/30/20 05:38 RBC 3.13 M/mm3 (3.65-5.03) L 06/30/20 05:38 Hgb 9.9 gm/dl (11.8-15.2) L 06/30/20 05:38 Hct 29.7 % (35.5-45.6) L D 06/30/20 05:38 MCV 95 fl (84-94) H 06/30/20 05:38 MCH 32 pg (28-32) 06/30/20 05:38 MCHC 33 % (32-34) 06/30/20 05:38 RDW 15.1 % (13.2-15.2) 06/30/20 05:38 Plt Count 243 K/mm3 (140-440) 06/30/20 05:38 Lymph % (Auto) 15.0 % (13.4-35.0) 06/30/20 05:38 [place] % (Auto) 10.3 % (0.0-7.3) H 06/30/20 05:38 Eos % (Auto) 2.2 % (0.0-4.3) 06/30/20 05:38 Baso % (Auto) 0.4 % (0.0-1.8) 06/30/20 05:38 Lymph # 1.1 K/mm3 (1.2-5.4) L 06/30/20 05:38 [place] # 0.7 K/mm3 (0.0-0.8) 06/30/20 05:38 Eos # 0.2 K/mm3 (0.0-0.4) 06/30/20 05:38 Baso # 0.0 K/mm3 (0.0-0.1) 06/30/20 05:38 Seg Neutrophils % 72.1 % (40.0-70.0) H 06/30/20 05:38 Seg Neutrophils # 5.1 K/mm3 (1.8-7.7) 06/30/20 05:38 PT 14.9 Sec. (12.2-14.9) 06/30/20 05:38 INR 1.15 (0.87-1.13) H 06/30/20 05:38 APTT 26.3 Sec. (24.2-36.6) 06/28/20 21:45 D-Dimer > 78348 ng/mlDDU (0-234) H 06/28/20 22:58 Sodium 142 mmol/L (137-145) D 06/30/20 05:38 Potassium 3.9 mmol/L (3.6-5.0) 06/30/20 05:38 Chloride 110.0 mmol/L (98-107) H 06/30/20 05:38 Carbon Dioxide 20 mmol/L (22-30) L 06/30/20 05:38 Anion Gap 16 mmol/L 06/30/20 05:38 BUN 18 mg/dL (9-20) 06/30/20 05:38 Creatinine 0.6 mg/dL (0.8-1.3) L 06/30/20 05:38 Estimated GFR > 60 ml/min 06/30/20 05:38 BUN/Creatinine Ratio 30 % 06/30/20 05:38 Glucose 87 mg/dL (75-100) 06/30/20 05:38 POC Glucose 99 (70-105) 06/30/20 12:22 Lactic Acid 1.00 mmol/L (0.7-2.0) 06/29/20 06:23 Calcium 8.9 mg/dL (8.4-10.2) 06/30/20 05:38 Total Bilirubin 0.90 mg/dL (0.1-1.2) 06/28/20 21:45 AST 31 units/L (5-40) 06/28/20 21:45 ALT 30 units/L (7-56) 06/28/20 21:45 Alkaline Phosphatase 105 units/L (35-129) 06/28/20 21:45 Troponin T < 0.010 ng/mL (0.00-0.029) 06/28/20 21:45 NT-Pro-B Natriuret Pep 1908 pg/mL (0-900) H 06/28/20 21:45 Total Protein 8.6 g/dL (6.3-8.2) H 06/28/20 21:45 Albumin 4.2 g/dL (3.9-5) 06/28/20 21:45 Albumin/Globulin Ratio 1.0 % 06/28/20 21:45 Urine Color Yellow (Yellow) 06/28/20 22:50 Urine Turbidity Cloudy (Clear) 06/28/20 22:50 Urine pH 7.0 (5.0-7.0) 06/28/20 22:50 Ur Specific [place] 1.020 (1.003-1.030) 06/28/20 22:50 Urine Protein 30 mg/dl mg/dL (Negative) 06/28/20 22:50 Urine Glucose (UA) Neg mg/dL (Negative) 06/28/20 22:50 Urine Ketones Neg mg/dL (Negative) 06/28/20 22:50 Urine Blood Neg (Negative) 06/28/20 22:50 Urine Nitrite Neg (Negative) 06/28/20 22:50 Urine Bilirubin Neg (Negative) 06/28/20 22:50 Urine Urobilinogen < 2.0 mg/dL (<2.0) 06/28/20 22:50 Ur Leukocyte Esterase Lg (Negative) 06/28/20 22:50 Urine WBC (Auto) 179.0 /HPF (0.0-6.0) H 06/28/20 22:50 Urine RBC (Auto) 13.0 /HPF (0.0-6.0) 06/28/20 22:50 Urine Mucus 1+ /HPF 06/28/20 22:50 Urine Yeast (Budding) 2+ /HPF 06/28/20 22:50 Nasal Screen MRSA (PCR) Positive (Negative) 06/29/20 Unknown Microbiology: Microbiology 06/28/20 Unknown Urine,Clean Catch Urine Culture - Preliminary Staphylococcus Aureus 06/28/20 21:45 Peripheral/Venous Blood Culture - Preliminary NO GROWTH AFTER 24 HOURS 06/28/20 21:45 Peripheral/Venous Blood Culture - Preliminary NO GROWTH AFTER 24 HOURS Castaneda/IV: Voiding Method Indwelling Catheter IV Catheter Type [Right Peripheral IV Forearm] Active Medications - Current Medications Current Medications: Generic Name Dose Route Start Last Admin Trade Name Freq PRN Reason Stop Dose Admin Acetaminophen 650 mg 06/29/20 02:22 06/29/20 06:01 Tylenol PO 650 mg Q4H PRN Administration Pain MILD(1-3)/Fever >100.5/KABA Lipase/Protease/Amylase 1 each 06/29/20 11:[address] 10,500 Unit FEEDTUBE PRN PRN For Clogged Feeding Tube Heparin Sodium (Porcine) 5,000 unit 06/29/20 06:00 06/30/20 13:00 Heparin SUB-Q 5,000 unit Q8HR CROW Administration Sodium Chloride 1,000 mls @ 75 mls/hr 06/29/20 02:30 06/30/20 06:25 Nacl 0.9% 1000 Ml IV 75 mls/hr DIRECT CROW Administration Ceftriaxone Sodium 1 gm in 50 mls @ 100 mls/hr 06/29/20 10:00 06/30/20 09:12 Rocephin/Ns 1 Gm/50 Ml IV 100 mls/hr Q24HR CROW Administration Protocol Lisinopril 10 mg 06/30/20 10:00 06/30/20 09:12 Zestril PO 10 mg QDAY CROW Administration Magnesium Hydroxide 30 ml 06/29/20 02:22 Milk Of Magnesia PO Q4H PRN Constipation Mupirocin 1 applic 06/30/20 10:00 06/30/20 12:59 Bactroban 2% NS 1 applic BID CROW Administration Ondansetron HCl 4 mg 06/29/20 02:22 Zofran IV Q8H PRN Nausea And Vomiting Simple Syrup 15 ml 06/29/20 11:59 Simple Syrup FEEDTUBE PRN PRN Hypoglycemia Simple Syrup 30 ml 06/29/20 11:59 Simple Syrup FEEDTUBE PRN PRN Hypoglycemia Sodium Bicarbonate 325 mg 06/29/20 11:59 Sodium Bicarbonate FEEDTUBE PRN PRN For Clogged Feeding Tube Sodium Chloride 10 ml 06/29/20 10:00 06/30/20 09:12 Sodium Chloride Flush Syringe 10 Ml IV 10 ml BID CROW Administration Sodium Chloride 10 ml 06/29/20 02:22 Sodium Chloride Flush Syringe 10 Ml IV PRN PRN LINE FLUSH Nutrition/Malnutrition Assess - Dietary Evaluation Nutrition/Malnutrition Findings: Nutrition Notes Start: 06/29/20 10:55 Freq: Status: Active Protocol: Document 06/29/20 10:55 ZAYDA (Rec: 06/29/20 11:59 ZAYDA [id number]) Co-Sign 06/29/20 10:55 LM Nutrition Notes Need for Assessment generated from: MD Order,contingents supervisor Initial or Follow up Assessment Current Diagnosis CKD(stage I-IV),Coronary Artery Disease,Sepsis, Hypertension,Heart Failure Other Pertinent Diagnosis UTI, RBKA, AMS, hx of stroke Current Diet NPO Labs/Tests Na 135 BUN 23 BG 104 Pertinent Medications NS 75 ml/hr Height 5 ft 4 in Weight 61.2 kg [place] Body Weight (kg) 59.09 BMI 23.1 Weight Status Appropriate Subjective/Other Information MD consult for TF. RN consult for skin risk and hx difficulty chewing. No wounds present at this time. Pt nonverbal. Burn Absent Trauma Absent Difficulty In Swallowing,Chewing Food Allergy No Current % PO Negligible Minimum of two criteria No physical signs of malnutrition #1 Nutrition Diagnosis Inadequate oral intake Etiology difficulty swallowing and chewing As Evidenced by Signs and Symptoms NPO Is patient on ventilator? No Is Patient Ambulatory and/or Out of Bed No REE-(Clover-St. Jeor-confined to bed) 1616.436 Calculation Used for Recommendations [facility] Additional Notes Protein needs are 34-45 g (0.6 -0.8 g/kg AdjBW for BKA, 56kg) Fluid needs are 1 ml/kcal Nutrition Intervention Change Diet Order: TF Nutrition Support: Osmolite 1.5 at 40 ml/hr Flush 50 q4h for hyponatremia. Flush 120 q4h once resolved. Kcal 1,440 Protein (gm) 60 Fluid (mL) 731 Goal #1 Meet 75% of energy and protein needs Goal #2 TF tolerance Anticipated Discharge Needs: TF Follow-Up By: 07/01/20 Additional Comments F/U for TF initiation/ tolerance and hyponatremia
[2020-06-30] MEDS ORDERED: VANCOMYCIN PHARMACY TO DOSE IV SCH (15:00)
[2020-06-30] MEDS ORDERED: VANCOMYCIN 1,250 MG in SODIUM CHLORIDE 0.9% 250ML 250 ML IV ONE (16:30)
[2020-07-01] MEDS ORDERED: VANCOMYCIN/NS 1 GM/250 ML 1 GM/250 ML BAG IV SCH (05:00)
[2020-07-01] MEDS: HEPARIN 5,000 UNIT/1 ML VIAL SUB-Q SCH ×3 (05:52→21:32)
[2020-07-01] MEDS: MUPIROCIN 2% OINT 22 GM NS SCH ×2 (09:17→21:34)
[2020-07-01] MEDS: SODIUM CHLORIDE 0.9% 1000 ML 1,000 ML IV SCH (09:17)
[2020-07-01] MEDS: cefTRIAXone/NS 1 GM/50 ML 1 GM/50 ML BAG IV SCH (09:18)
[2020-07-01] MEDS: LISINOPRIL 10 MG TAB PO SCH (09:53)
--- NOTE | 2020-07-01 13:29 | Progress Note ---
Assessment and Plan Assessment and plan: Patient Problems (1) Acute bronchitis Current Visit: Yes Status: Acute Plan to address problem: Antibiotics (2) MRSA UTI (urinary tract infection) Current Visit: Yes Status: Acute Plan to address problem: Start bactrim (3) Hyponatremia Current Visit: No Status: Acute Plan to address problem: Trend Na (4) Anemia - dilutional Current Visit: No Status: Acute Plan to address problem: Monitor for now (5) DVT prophylaxis Current Visit: No Status: Acute Plan to address problem: Patient placed on subcutaneous (6) Full code status Current Visit: Yes Status: Acute History Interval history: Patient seen and examined at bedside this morning. He is alert but unable to make needs known. On antibiotics for UTI. Urine culture positive for MRSA. COVID-19 test needed prior to discharge Hospitalist Physical - Constitutional Vitals: Temp Pulse Resp BP Pulse Ox 97.8 F 80 18 170/91 100 07/01/20 09:23 07/01/20 09:23 07/01/20 09:23 07/01/20 09:23 07/01/20 09:23 General appearance: Present: no acute distress - EENT Eyes: Present: PERRL - Neck Neck: Present: supple - Respiratory Respiratory: bilateral: CTA - Cardiovascular Heart Sounds: Present: S1 & S2 - Abdominal General gastrointestinal: soft, non-tender, non-distended - Neurologic Neurologic: other (Nonverbal at baseline) HEART Score - HEART Score Troponin: Troponin T < 0.010 ng/mL (0.00-0.029) 06/28/20 21:45 Results - Labs CBC & Chem 7: 06/30/20 05:38 06/30/20 05:38 Labs: Laboratory Last Values WBC 7.1 K/mm3 (4.5-11.0) 06/30/20 05:38 RBC 3.13 M/mm3 (3.65-5.03) L 06/30/20 05:38 Hgb 9.9 gm/dl (11.8-15.2) L 06/30/20 05:38 Hct 29.7 % (35.5-45.6) L D 06/30/20 05:38 MCV 95 fl (84-94) H 06/30/20 05:38 MCH 32 pg (28-32) 06/30/20 05:38 MCHC 33 % (32-34) 06/30/20 05:38 RDW 15.1 % (13.2-15.2) 06/30/20 05:38 Plt Count 243 K/mm3 (140-440) 06/30/20 05:38 Lymph % (Auto) 15.0 % (13.4-35.0) 06/30/20 05:38 [place] % (Auto) 10.3 % (0.0-7.3) H 06/30/20 05:38 Eos % (Auto) 2.2 % (0.0-4.3) 06/30/20 05:38 Baso % (Auto) 0.4 % (0.0-1.8) 06/30/20 05:38 Lymph # 1.1 K/mm3 (1.2-5.4) L 06/30/20 05:38 [place] # 0.7 K/mm3 (0.0-0.8) 06/30/20 05:38 Eos # 0.2 K/mm3 (0.0-0.4) 06/30/20 05:38 Baso # 0.0 K/mm3 (0.0-0.1) 06/30/20 05:38 Seg Neutrophils % 72.1 % (40.0-70.0) H 06/30/20 05:38 Seg Neutrophils # 5.1 K/mm3 (1.8-7.7) 06/30/20 05:38 PT 14.9 Sec. (12.2-14.9) 06/30/20 05:38 INR 1.15 (0.87-1.13) H 06/30/20 05:38 APTT 26.3 Sec. (24.2-36.6) 06/28/20 21:45 D-Dimer > 95114 ng/mlDDU (0-234) H 06/28/20 22:58 Sodium 142 mmol/L (137-145) D 06/30/20 05:38 Potassium 3.9 mmol/L (3.6-5.0) 06/30/20 05:38 Chloride 110.0 mmol/L (98-107) H 06/30/20 05:38 Carbon Dioxide 20 mmol/L (22-30) L 06/30/20 05:38 Anion Gap 16 mmol/L 06/30/20 05:38 BUN 18 mg/dL (9-20) 06/30/20 05:38 Creatinine 0.6 mg/dL (0.8-1.3) L 06/30/20 05:38 Estimated GFR > 60 ml/min 06/30/20 05:38 BUN/Creatinine Ratio 30 % 06/30/20 05:38 Glucose 87 mg/dL (75-100) 06/30/20 05:38 POC Glucose 106 (70-105) H 07/01/20 12:23 Lactic Acid 1.00 mmol/L (0.7-2.0) 06/29/20 06:23 Calcium 8.9 mg/dL (8.4-10.2) 06/30/20 05:38 Total Bilirubin 0.90 mg/dL (0.1-1.2) 06/28/20 21:45 AST 31 units/L (5-40) 06/28/20 21:45 ALT 30 units/L (7-56) 06/28/20 21:45 Alkaline Phosphatase 105 units/L (35-129) 06/28/20 21:45 Troponin T < 0.010 ng/mL (0.00-0.029) 06/28/20 21:45 NT-Pro-B Natriuret Pep 1908 pg/mL (0-900) H 06/28/20 21:45 Total Protein 8.6 g/dL (6.3-8.2) H 06/28/20 21:45 Albumin 4.2 g/dL (3.9-5) 06/28/20 21:45 Albumin/Globulin Ratio 1.0 % 06/28/20 21:45 Urine Color Yellow (Yellow) 06/28/20 22:50 Urine Turbidity Cloudy (Clear) 06/28/20 22:50 Urine pH 7.0 (5.0-7.0) 06/28/20 22:50 Ur Specific Hugo 1.020 (1.003-1.030) 06/28/20 22:50 Urine Protein 30 mg/dl mg/dL (Negative) 06/28/20 22:50 Urine Glucose (UA) Neg mg/dL (Negative) 06/28/20 22:50 Urine Ketones Neg mg/dL (Negative) 06/28/20 22:50 Urine Blood Neg (Negative) 06/28/20 22:50 Urine Nitrite Neg (Negative) 06/28/20 22:50 Urine Bilirubin Neg (Negative) 06/28/20 22:50 Urine Urobilinogen < 2.0 mg/dL (<2.0) 06/28/20 22:50 Ur Leukocyte Esterase Lg (Negative) 06/28/20 22:50 Urine WBC (Auto) 179.0 /HPF (0.0-6.0) H 06/28/20 22:50 Urine RBC (Auto) 13.0 /HPF (0.0-6.0) 06/28/20 22:50 Urine Mucus 1+ /HPF 06/28/20 22:50 Urine Yeast (Budding) 2+ /HPF 06/28/20 22:50 Nasal Screen MRSA (PCR) Positive (Negative) 06/29/20 Unknown Microbiology: Microbiology 06/28/20 Unknown Urine,Clean Catch Urine Culture - Final Methicillin Resist S. Aureus 06/28/20 21:45 Peripheral/Venous Blood Culture - Preliminary NO GROWTH AFTER 48 HOURS 06/28/20 21:45 Peripheral/Venous Blood Culture - Preliminary NO GROWTH AFTER 48 HOURS Castaneda/IV: Voiding Method Indwelling Catheter IV Catheter Type [Right Peripheral IV Forearm] Active Medications - Current Medications Current Medications: Generic Name Dose Route Start Last Admin Trade Name Freq PRN Reason Stop Dose Admin Acetaminophen 650 mg 06/29/20 02:22 06/29/20 06:01 Tylenol PO 650 mg Q4H PRN Administration Pain MILD(1-3)/Fever >100.5/KABA Lipase/Protease/Amylase 1 each 06/29/20 11:[address] 10,500 Unit FEEDTUBE PRN PRN For Clogged Feeding Tube Heparin Sodium (Porcine) 5,000 unit 06/29/20 06:00 07/01/20 05:52 Heparin SUB-Q 5,000 unit Q8HR CROW Administration Sodium Chloride 1,000 mls @ 75 mls/hr 06/29/20 02:30 07/01/20 09:17 Nacl 0.9% 1000 Ml IV 75 mls/hr DIRECT CROW Administration Ceftriaxone Sodium 1 gm in 50 mls @ 100 mls/hr 06/29/20 10:00 07/01/20 09:18 Rocephin/Ns 1 Gm/50 Ml IV 100 mls/hr Q24HR CROW Administration Protocol Vancomycin HCl 1 gm in 250 mls @ 166.667 mls/hr 07/01/20 05:00 07/01/20 05:53 Vancomycin/Ns 1 Gm/250 Ml IV 166.667 mls/hr Q12H CROW Administration Lisinopril 10 mg 06/30/20 10:00 07/01/20 09:53 Zestril PO 10 mg QDAY CROW Administration Magnesium Hydroxide 30 ml 06/29/20 02:22 Milk Of Magnesia PO Q4H PRN Constipation Mupirocin 1 applic 06/30/20 10:00 07/01/20 09:17 Bactroban 2% NS 1 applic BID CROW Administration Ondansetron HCl 4 mg 06/29/20 02:22 Zofran IV Q8H PRN Nausea And Vomiting Simple Syrup 15 ml 06/29/20 11:59 Simple Syrup FEEDTUBE PRN PRN Hypoglycemia Simple Syrup 30 ml 06/29/20 11:59 Simple Syrup FEEDTUBE PRN PRN Hypoglycemia Sodium Bicarbonate 325 mg 06/29/20 11:59 Sodium Bicarbonate FEEDTUBE PRN PRN For Clogged Feeding Tube Sodium Chloride 10 ml 06/29/20 10:00 07/01/20 09:18 Sodium Chloride Flush Syringe 10 Ml IV 10 ml BID CROW Administration Sodium Chloride 10 ml 06/29/20 02:22 Sodium Chloride Flush Syringe 10 Ml IV PRN PRN LINE FLUSH Nutrition/Malnutrition Assess - Dietary Evaluation Nutrition/Malnutrition Findings: Nutrition Notes Start: 06/29/20 10:55 Freq: Status: Active Protocol: Document 07/01/20 10:35 ZAYDA (Rec: 07/01/20 11:32 ZAYDA [id number]) Co-Sign 07/01/20 10:35 LM Nutrition Notes Initial or Follow up Reassessment Current Diagnosis CKD(stage I-IV),Coronary Artery Disease,Sepsis, Hypertension,Heart Failure Other Pertinent Diagnosis UTI, RBKA, AMS, hx of stroke Current Diet Osmolite 1.5 at 40ml/hr Labs/Tests Reviewed Pertinent Medications NS 75 ml/hr Height 5 ft 4 in Weight 61.2 kg [place] Body Weight (kg) 59.09 BMI 23.1 Subjective/Other Information F/U for TF start/tolerance and hyponatremia. TF running at goal rate via PEG. Hyponatremia resolved. Percent of energy/protein needs met: 89%/100% Burn Absent Trauma Absent Difficulty In Swallowing,Chewing Food Allergy No Current % PO Negligible Minimum of two criteria No physical signs of malnutrition #1 Nutrition Diagnosis Inadequate oral intake Diagnosis Progress(for reassessment Continues documentation) Is patient on ventilator? No Is Patient Ambulatory and/or Out of Bed No REE-([facility]-confined to bed) [id number] Calculation Used for Recommendations [facility] Additional Notes Protein needs are 34-45 g (0.6 -0.8 g/kg AdjBW for BKA, 56kg) Fluid needs are 1 ml/kcal Nutrition Intervention Change Diet Order: TF Nutrition Support: Osmolite 1.5 at 40 ml/hr Flush 120 ml q4h Kcal 1,440 Protein (gm) 60 Fluid (mL) 731 Goal #1 Meet 75% of energy and protein needs Goal #2 TF tolerance Anticipated Discharge Needs: TF Follow-Up By: 07/06/20 Additional Comments F/U for TF tolerance
--- NOTE | 2020-07-01 13:33 | Discharge Summary ---
Providers - Providers Date of Admission: 06/30/20 15:34 Date of discharge: 07/01/20 Attending physician: HAWA GALEANA 06/29/20 09:01 Consult to Dietitian/Nutrition [CONS] Routine Physician Instructions: Reason For Exam: Reason for Consult: Write/Manage Tube Feeding Primary care physician: [facility] Hospitalization Condition: Stable Hospital course: HPI 60-year-old male with known history of CVA, coronary artery disease, CHF, chronic kidney disease, history of subarachnoid hemorrhage was a resident of [facility] brought into the emergency room today for shortness of breath. Patient was said to be in respiratory distress and 911 was called.. He was said to have tested positive for COVID-19 in December 2019 but has since tested negative since then. He was said to have tested negative sometime in May 2020. According to paperwork from the intermediate patient is aphasic. EMS also reports that patient's oxygen saturation was about 90% on room air. Patient unable to give any history because of his mental status. Work-up in the emergency room today reveals urinary tract infection. Chest x- ray and VQ scan were unremarkable. Patient was started on empiric IV antibiotics for UTI and for possible bronchitis. Hospital course Patient was admitted and started on IV antibiotics. Urine cultures were sent and results showed MRSA UTI. Patient's antibiotics have been switched to Bactrim. He will be on Bactrim for 7 more days. He will be going back to facility today. Disposition: [id number]/[place]-03 SNF W [facility] CERT - Discharge Diagnoses (1) MRSA (methicillin resistant Staphylococcus aureus) infection Status: Acute (2) Acute bronchitis Status: Acute (3) UTI (urinary tract infection) Status: Acute Core Measure Documentation - Palliative Care Palliative Care/ Comfort Measures: Not Applicable - Core Measures Any of the following diagnoses?: none Exam - Constitutional Vitals: Temp Pulse Resp BP Pulse Ox 97.8 F 80 18 170/91 100 07/01/20 09:23 07/01/20 09:23 07/01/20 09:23 07/01/20 09:23 07/01/20 09:23 General appearance: Present: no acute distress - EENT Eyes: Present: PERRL - Neck Neck: Present: supple - Respiratory Respiratory effort: normal Respiratory: bilateral: CTA - Cardiovascular Heart Sounds: Present: S1 & S2. Absent: rub, click - Extremities Extremities: pulses symmetrical, No edema Peripheral Pulses: within normal limits - Abdominal General gastrointestinal: Present: soft, non-tender, non-distended, normal bowel sounds - Integumentary Integumentary: Present: clear, warm, dry - Neurologic Neurologic: CNII-XII intact Plan Activity: no restrictions Additional Instructions: Complete Bactrim in 7 days. Steroids for 5 days Follow up with: PRIMARY CARE,MD [Primary Care Provider] - 3-5 Days Prescriptions: Sulfamethoxazole/Trimethoprim [Bactrim DS TAB] 1 each PO Q12HR #14 tablet Mupirocin [Bactroban 2% OINT] 1 applic NS BID #1 tube predniSONE [Deltasone] 40 mg PO DAILY #8 tablet lisinopriL [Zestril TAB] 10 mg PO QDAY #30 tablet
[2020-07-01] MEDS ORDERED: SULFAMETHOXAZOLE/TRIMETHOPRIM 800/160MG DS TAB PO SCH (22:00)
[2020-07-02 00:21] VITALS: BP 158/68
== END 2020-07-02 01:43 | DRG 202 ==
LOC: ED 20:31 → 4A 06-29 02:15 → OBSVTOIN 06-30 15:34
PROVIDERS: ADMIT Internal Medicine Geriatric Medicine; ATTEND Internal Medicine
DX: J20.9 Acute bronchitis, unspecified (principal); N39.0 Urinary tract infection, site not specified; E87.1 Hypo-osmolality and hyponatremia; I13.0 Hypertensive heart and chronic kidney disease with heart failure and stage 1 through stage 4 chronic kidney disease, or unspecified chronic kidney disease; E11.22 Type 2 diabetes mellitus with diabetic chronic kidney disease; I50.9 Heart failure, unspecified; D64.9 Anemia, unspecified; N18.3 Chronic kidney disease, stage 3 (moderate); I25.10 Atherosclerotic heart disease of native coronary artery without angina pectoris; B95.62 Methicillin resistant Staphylococcus aureus infection as the cause of diseases classified elsewhere; I25.2 Old myocardial infarction; Z95.5 Presence of coronary angioplasty implant and graft; Z86.73 Personal history of transient ischemic attack (TIA), and cerebral infarction without residual deficits
CPT/HCPCS: 36415; 71045; 78580; 80048; 80053; 81001; 82140; 82962; 83880; 84484; 85025; 85379; 85610; 85730; 87040; 87076; 87086; 87186; 87641; 93005; 93970; 96365; 96375; G0378; A9540; J0696; J1644; J3370; J7030; J7050; U0003-CS

== ENCOUNTER 2020-08-24 21:08 | Emergency (ER) | payer MEDICAID ==
[~2020-08-24 21:08] MED LIST: EPINEPHrine 1 MG/10 ML SYRINGE ONE
--- NOTE | 2020-08-24 21:29 | Emergency Department Report ---
ED CPR HPI - General Stated Complaint: CARDIAC ARREST Time Seen by Provider: 08/24/20 21:26 Source: EMS - History of Present Illness Initial Comments: Patient is 60 years old male with history of CABG, right above-knee amputation. Patient brought to the emergency room via EMS from [facility] in a full cardiac arrest, CPR in progress. EMS informed us that patient was found to be in asystole approximately 45 minutes prior to coming to the ER. EMS stated that patient initially was PEA and then turned to asystole. Patient intubated by EMS. Upon arrival to the ER, ACLS protocol continued however patient remained in asystole. Patient pronounced at 9:11 PM. Total resuscitation time by EMS and ER is 50 minutes. MD Complaint: found unresponsive -: minute(s) (21), hour(s) (20) Place: [facility]/S[facility] Bystander CPR Performed: Yes Shock Advised: No Initial Findings in the Field: no pulse, systole ROSC in the Field: No Associated Injuries: No Treatments Prior to Arrival: intubation - Related Data Home Medications Medication Instructions Recorded Confirmed Last Taken AtorvaSTATin 80 mg FEEDTUBE QHS 11/03/19 08/08/20 08/07/20 Citalopram [celeXA] 10 mg PO QDAY 11/03/19 08/08/20 Unknown Clopidogrel [Plavix] 75 mg PO DAILY 11/03/19 08/08/20 08/07/20 labetaloL [Labetalol 200mg TAB] 200 mg FEEDTUBE Q12HR 11/03/19 08/08/20 08/07/20 Amlodipine Besylate 5 mg FEEDTUBE DAILY 08/08/20 08/08/20 08/07/20 Citalopram HBr 10 mg FEEDTUBE DAILY 08/08/20 08/08/20 08/07/20 10 MG Docusate Sodium 60 mg FEEDTUBE DAILY 08/08/20 08/08/20 08/07/20 Doxazosin Mesylate 2 mg FEEDTUBE DAILY 08/08/20 08/08/20 08/07/20 Hydrocodone-Acetamn 7.5-325/15 7.5 mg FEEDTUBE Q8HR PRN 08/08/20 08/08/20 Unknown Ibuprofen 800 mg FEEDTUBE Q8HR PRN 08/08/20 08/08/20 Unknown Ipratropium/Albuterol Sulfate 0.5 ml INHALATION Q6HR PRN 08/08/20 08/08/20 Unknown Melatonin 3 mg Tablet 3 mg FEEDTUBE HS 08/08/20 08/08/20 08/07/20 3 MG Scopolamine 1 mg TRANSDERMA Q72HR 08/08/20 08/08/20 08/07/20 Vitamin C 500 mg/15 ml Liquid 500 mg FEEDTUBE DAILY 08/08/20 08/08/20 08/07/20 predniSONE [Deltasone] 20 mg PO DAILY 08/08/20 08/08/20 Unknown Previous Rx's Medication Instructions Recorded Last Taken Type Ondansetron [Zofran ODT TAB] 4 mg PO Q6HR PRN #20 tab.rapdis 06/04/20 Unknown Rx Pantoprazole [Protonix TAB] 40 mg PO BID #60 tablet 08/10/20 Unknown Rx Allergies Allergy/AdvReac Type Severity Reaction Status Date / Time No Known Allergies Allergy Verified 11/01/19 18:46 ED Review of Systems ROS: Stated complaint: CARDIAC ARREST Other details as noted in HPI Comment: Unobtainable due to pts medical conditions ED Past Medical Hx - Past Medical History Hx Hypertension: Yes Hx CVA: Yes Hx Heart Attack/AMI: Yes Hx Congestive Heart Failure: Yes Hx Renal Disease: Yes (CKD 3) Hx Seizures: Yes (subarachnoid hemorrhage) Hx HIV: No Additional medical history: Coronary artery disease, subarachnoid hemorrhage, Pyelonephritis - Surgical History Hx Open Heart Surgery: Yes Additional Surgical History: CABG, PEG tube 05/13/19, R leg amputation 2018 - Social History Smoking Status: Unknown if ever smoked - Medications Home Medications: Home Medications Medication Instructions Recorded Confirmed Last Taken Type AtorvaSTATin 80 mg FEEDTUBE QHS 11/03/19 08/08/20 08/07/20 History Citalopram [celeXA] 10 mg PO QDAY 11/03/19 08/08/20 Unknown History Clopidogrel [Plavix] 75 mg PO DAILY 11/03/19 08/08/20 08/07/20 History labetaloL [Labetalol 200mg TAB] 200 mg FEEDTUBE Q12HR 11/03/19 08/08/20 08/07/20 History Ondansetron [Zofran ODT TAB] 4 mg PO Q6HR PRN #20 tab.rapdis 06/04/20 08/08/20 Unknown Rx Amlodipine Besylate 5 mg FEEDTUBE DAILY 08/08/20 08/08/20 08/07/20 History Citalopram HBr 10 mg FEEDTUBE DAILY 08/08/20 08/08/20 08/07/20 History 10 MG Docusate Sodium 60 mg FEEDTUBE DAILY 08/08/20 08/08/20 08/07/20 History Doxazosin Mesylate 2 mg FEEDTUBE DAILY 08/08/20 08/08/20 08/07/20 History Hydrocodone-Acetamn 7.5-325/15 7.5 mg FEEDTUBE Q8HR PRN 08/08/20 08/08/20 Unknown History Ibuprofen 800 mg FEEDTUBE Q8HR PRN 08/08/20 08/08/20 Unknown History Ipratropium/Albuterol Sulfate 0.5 ml INHALATION Q6HR PRN 08/08/20 08/08/20 Unknown History Melatonin 3 mg Tablet 3 mg FEEDTUBE HS 08/08/20 08/08/20 08/07/20 History 3 MG Scopolamine 1 mg TRANSDERMA Q72HR 08/08/20 08/08/20 08/07/20 History Vitamin C 500 mg/15 ml Liquid 500 mg FEEDTUBE DAILY 08/08/20 08/08/20 08/07/20 History predniSONE [Deltasone] 20 mg PO DAILY 08/08/20 08/08/20 Unknown History Pantoprazole [Protonix TAB] 40 mg PO BID #60 tablet 08/10/20 Unknown Rx ED Physical Exam - General General appearance: other (CPR in progress) - Head Head exam: Present: atraumatic - Eye Pupils: Present: other (Pupils are 5 mm and dilated, nonreactive to light.) - Neck Neck exam: Present: normal inspection - Respiratory Respiratory exam: Present: other (No spontaneous breathing) - Cardiovascular Cardiovascular Exam: Present: other (No spontaneous heart tone) - GI/Abdominal GI/Abdominal exam: Present: soft - Neurological Exam Neurological exam: Present: other (CPR in progress) Critical Care Time: Yes Critical care time in (mins) excluding proc time.: 30 Critical care attestation.: If time is entered above; I have spent that time in minutes in the direct care of this critically ill patient, excluding procedure time. ED Disposition Clinical Impression: Cardiopulmonary arrest Disposition: DC-20 Is pt being admited?: No Condition: Stable Referrals: CHAZ ORLLE MD [Primary Care Provider] - 3-5 Days
== END 2020-08-25 06:00 ==
LOC: ED 21:08
DX: I46.9 Cardiac arrest, cause unspecified (principal); I11.0 Hypertensive heart disease with heart failure; I50.9 Heart failure, unspecified; I25.2 Old myocardial infarction; R56.9 Unspecified convulsions; Z86.73 Personal history of transient ischemic attack (TIA), and cerebral infarction without residual deficits; Z79.1 Long term (current) use of non-steroidal anti-inflammatories (NSAID); Z79.899 Other long term (current) drug therapy; Z98.890 Other specified postprocedural states
CPT/HCPCS: 92950; 99291; J0171